=== PATIENT | female | born 1935 | race Hispanic/Latino ===

== ENCOUNTER 2018-03-26 16:01 | Observation (INO) | payer OTHER ==
[2018-03-26 17:36] LABS: Absolute Lymphocytes (CBC) 0.7 K/uL (0.7-4.9); Absolute Monocytes 0.5 K/uL (0.1-1.3); Absolute Neutrophil 6.9 K/uL (1.8-8.0); Basophils % 0.5 % (0-1.3); Eosinophils % 0.3 % (0-4.4); Hematocrit 39.2 % (36.0-45.0); Lymphocytes % 8.1 % (15.3-44.8); MCH 32.5 pg (27.0-35.0); MCV 102.4 fL (80-100); Monocytes % 5.6 % (3.3-12.3); RBC Red Blood Cell Count 3.83 M/uL (3.86-4.86)
[2018-03-26 17:50] LABS: Bilirubin Direct 0.2 mg/dL (0-0.2); Bilirubin Total 0.5 mg/dL (0.2-1.0); CKMB Creatine Kinase MB 3.2 ng/mL (0.3-3.6); Magnesium 1.9 mg/dL (1.8-2.4); Potassium 3.2 mmol/L (3.5-5.1); Protein, Total 5.8 g/dL (6.4-8.2)
--- NOTE | 2018-03-26 17:59 | RAD REPORT ---
EXAM DESCRIPTION: Sohail Single View03/26/2018 5:31 pm CLINICAL HISTORY: Shortness of breath COMPARISON: 2016 FINDINGS: A right cardiophrenic opacity represents epicardial fat The lungs appear clear of acute infiltrate. The heart is moderately enlarged. The aorta is tortuous/e ctatic. Central venous catheter remains in place IMPRESSION: No acute abnormalities displayed
[2018-03-26 18:01] LABS: Protime INR 0.94
[2018-03-26 19:06] LABS: Blood Morphology Comment NOTED (NOT SEEN); Burr Cells 1+; Platelet Estimate DECR
--- NOTE | 2018-03-26 19:13 | EDPHYS ---
Physician Documentation [facility] Name: Stefany Sauer Age: 82 yrs Sex: Female : 1935 Arrival Date: 03/26/2018 Time: 16:17 Bed 23 Private MD: Dilan Winston ED Physician Dale Albrecht HPI: 03/26 16:18 This 82 yrs old Female presents to ER via Unassigned with complaints of Chest kav Pain. 16:53 Onset: The symptoms/episode began/occurred acutely. Associated signs and symptoms: kav Pertinent positives: chest pain, headache, Pertinent negatives: fever. The patient has experienced a previous episode, approximately 2 years ago. The patient has not recently seen a physician. patient pcp is dr. winston, injection mold technician is dr. sanchez. patient home medication regimen includes prednisone 10 mg po q daily. 16:57 The patient or guardian reports chest pain that is located primarily in the anterior kav aspect of left upper chest and left breast. Onset: acutely. The pain does not radiate. The chest pain is described as stabbing. Duration: The patient or guardian reports a single episode, that is now resolved. Modifying factors: The symptoms are alleviated by nothing. the symptoms are aggravated by "...dialysis this morning". patient reports that chest pain started after dialysis. Severity of pain: At its worst the pain was very mild this morning, in the emergency department the pain has resolved. Historical: - Allergies: 16:26 Betapace; tl3 16:26 Ferrous Gluconate; tl3 16:26 Sulfa (Sulfonamide Antibiotics); tl3 16:26 Trazodone; tl3 16:26 Zutripro; tl3 - Home Meds: 16:26 levothyroxine 125 mcg tab 1 tab once daily [Active]; amlodipine 5 mg tab 1 tab once tl3 daily [Active]; omeprazole 40 mg Oral cpDR 1 cap once daily [Active]; calcium acetate 667 mg Oral cap 1 caps with meals [Active]; Poppy-Taisha 0.8 mg oral tab [Active]; Dialyvite 800 with Zinc 15 0.8-15 mg Oral tab daily [Active]; Vitamin D3 5,000 unit oral tab daily [Active]; allopurinol 100 mg Oral tab 1 tab once daily [Active]; prednisone 10 mg Oral tab once daily [Active]; pravastatin 40 mg Oral tab 1 tab once daily [Active]; tadalafil oral oral 1 tab once daily [Active]; - PMHx: 16:26 CHF; Cirrhosis; CVA; Dialysis; GI Bleed; Gout; Hyperlipidemia; Hypertension; tl3 Hypothyroidism; seasonal allergies; - Immunization history:: Adult Immunizations up to date. - Social history:: Smoking status: unknown. - Ebola Screening: : No symptoms or risks identified at this time. - Family history:: not pertinent. - Hospitalizations: : No recent hospitalization is reported. - History obtained from: daughter. ROS: 16:57 Constitutional: Negative for fever, chills, and weight loss, Eyes: Negative for injury, kav pain, redness, and discharge, ENT: Negative for injury, pain, and discharge, Neck: Negative for injury, pain, and swelling, Respiratory: Negative for shortness of breath, cough, wheezing, and pleuritic chest pain, Abdomen/GI: Negative for abdominal pain, nausea, vomiting, diarrhea, and constipation, Back: Negative for injury and pain, : Negative for injury, bleeding, discharge, and swelling, MS/Extremity: Negative for injury and deformity, Skin: Negative for injury, rash, and discoloration, Neuro: Negative for headache, weakness, numbness, tingling, and seizure, Psych: Negative for depression, anxiety, suicide ideation, homicidal ideation, and hallucinations, Allergy/Immunology: Negative for hives, rash, and allergies, Endocrine: Negative for neck swelling, polydipsia, polyuria, polyphagia, and marked weight changes, Hematologic/Lymphatic: Negative for swollen nodes, abnormal bleeding, and unusual bruising. 16:57 Cardiovascular: Positive for chest pain, of the left breast and anterior aspect of left upper chest. Exam: 16:57 Constitutional: This is a well developed, well nourished patient who is awake, alert, kav and in no acute distress. Head/Face: Normocephalic, atraumatic. Eyes: Pupils equal round and reactive to light, extra-ocular motions intact. Lids and lashes normal. Conjunctiva and sclera are non-icteric and not injected. Cornea within normal limits. Periorbital areas with no swelling, redness, or edema. ENT: Nares patent. No nasal discharge, no septal abnormalities noted. Tympanic membranes are normal and external auditory canals are clear. Oropharynx with no redness, swelling, or masses, exudates, or evidence of obstruction, uvula midline. Mucous membranes moist. Neck: Trachea midline, no thyromegaly or masses palpated, and no cervical lymphadenopathy. Supple, full range of motion without nuchal rigidity, or vertebral point tenderness. No Meningismus. Chest/axilla: Normal chest wall appearance and motion. Nontender with no deformity. No lesions are appreciated. Respiratory: Lungs have equal breath sounds bilaterally, clear to auscultation and percussion. No rales, rhonchi or wheezes noted. No increased work of breathing, no retractions or nasal flaring. Abdomen/GI: Soft, non-tender, with normal bowel sounds. No distension or tympany. No guarding or rebound. No evidence of tenderness throughout. Back: No spinal tenderness. No costovertebral tenderness. Full range of motion. Skin: Warm, dry with normal turgor. Normal color with no rashes, no lesions, and no evidence of cellulitis. MS/ Extremity: Pulses equal, no cyanosis. Neurovascular intact. Full, normal range of motion. Neuro: Awake and alert, GCS 15, oriented to person, place, time, and situation. Cranial nerves II-XII grossly intact. Motor strength 5/5 in all extremities. Sensory grossly intact. Cerebellar exam normal. Normal gait. Psych: Awake, alert, with orientation to person, place and time. Behavior, mood, and affect are within normal limits. 16:57 Cardiovascular: Rate: tachycardic, actual rate is 128 bpm, Rhythm: sinus tachycardia, Pulses: Pulses are 2+ in right radial artery and left radial artery. Heart sounds: murmur, heard in the mitral area, Edema: pedal edema, that is moderate, ble edema 3+ pitting edema. 16:57 ECG was reviewed by the Attending Physician. Vital Signs: 16:26 BP 102 / 63; Pulse 69; Resp 18; Temp 98.6(O); Pulse Ox 98% on 2 lpm NC; tl3 17:37 BP 89 / 63; Pulse 102; Resp 18; Pulse Ox 99% on 2 lpm NC; tl3 18:02 BP 89 / 50; Pulse 76; Resp 25; Pulse Ox 98% on 2 lpm NC; rv 18:59 BP 102 / 53; Pulse 106; Resp 18; Pulse Ox 100% ; tl3 18:59 BP 109 / 67; Pulse 90; Resp 18; Pulse Ox 100% ; tl3 20:08 BP 128 / 70; Pulse 80; Resp 18; Pulse Ox 100% on 2 lpm NC; tl3 21:06 BP 122 / 71; Pulse 79; Pulse Ox 98% on 2 lpm NC; rv 21:23 BP 134 / 71; Pulse 82; Resp 18; Pulse Ox 99% on 2 lpm NC; tl3 MDM: 17:52 Data reviewed: vital signs, nurses notes, lab test result(s), EKG, radiologic studies, kav plain films. 17:59 Transition of care: After a detail discussion of the patient's case, care is kav transferred to Rigo Whitaker NP. 19:10 Physician consultation: Dilan Winston MD was called at 19:00, was contacted at 19:00, pm1 regarding admission, patient's condition, would like consultation with Dr. Pacheco, in the emergency department to see patient at 19:10. 19:12 Patient medically screened. pm1 19:16 Physician consultation: Dilan Winston MD would like further tests performed, bilateral pm1 hip and L-spine x-ray. 03/26 16:18 Order name: Basic Metabolic Panel; Complete Time: 17:51 03/26 16:18 Order name: CBC with Diff; Complete Time: 19:09 03/26 16:18 Order name: Ckmb; Complete Time: 17:51 03/26 16:18 Order name: CPK; Complete Time: 17:51 03/26 16:18 Order name: LFT's; Complete Time: 17:51 03/26 16:18 Order name: Magnesium; Complete Time: 17:51 03/26 16:18 Order name: NT PRO-BNP; Complete Time: 17:51 03/26 16:18 Order name: PT-INR; Complete Time: 18:16 03/26 16:18 Order name: Ptt, Activated; Complete Time: 18:16 03/26 16:18 Order name: Troponin (emerg Dept Use Only); Complete Time: 17:53 03/26 16:18 Order name: XRAY Chest (1 view); Complete Time: 18:16 kav 07/11 17:35 Order name: Troponin (emerg Dept Use Only): 2nd troponin - draw at 1820; Complete Time: kav 19:09 03/26 17:39 Order name: Manual Differential; Complete Time: 19:09 EDMS 03/26 19:16 Order name: Lumbar Spine (3 Views) XRAY pm1 03/26 16:18 Order name: EKG; Complete Time: 16:19 kav 03/26 16:18 Order name: Cardiac monitoring; Complete Time: 17:36 kav 03/26 16:18 Order name: EKG - Nurse/Tech; Complete Time: 17:36 kav 03/26 16:18 Order name: IV Saline Lock; Complete Time: 17:36 kav 03/26 16:18 Order name: Labs collected and sent; Complete Time: 17:36 kav 03/26 16:18 Order name: O2 Per Protocol; Complete Time: 17:37 kav 03/26 16:18 Order name: O2 Sat Monitoring; Complete Time: 17:37 kav 03/26 17:53 Order name: VS Recheck; Complete Time: 18:04 ka 03/26 19:16 Order name: Hip Left 2 View XRAY pm1 03/26 19:16 Order name: Hip Right 2 View XRAY pm1 03/26 19:16 Order name: Pelvis XRAY pm1 03/26 20:02 Order name: RAD; Complete Time: 20:29 EDMS 03/26 20:02 Order name: RAD; Complete Time: 20:29 EDMS 03/26 20:03 Order name: RAD; Complete Time: 20:29 EDMS 03/26 20:08 Order name: RAD; Complete Time: 20:29 EDMS Administered Medications: No medications were administered Disposition: 03/26/18 19:12 Hospitalization ordered by Dilan Winston for Observation. Preliminary diagnosis is Chest pain, unspecified. - Bed requested for Telemetry/MedSurg (observation). - Status is Observation. tl3 - Condition is Stable. - Problem is new. - Symptoms are resolved. UTI on Admission? No Addendum: 03/28/2018 20:53 Co-signature as Attending Physician, Dale Albrecht MD. r n Signatures: Dispatcher [facility] Shelby Sosa RN Emi Sousa FNP SOCIAL WORK PROFESSOR kav Dale Albrecht MD MD rn Marinas, Patrick, FRANKFURTER INSPECTOR FRANKFURTER INSPECTOR pm1 Karol Chopra RN RN tl3 Corrections: (The following items were deleted from the chart) 03/26 16:59 16:53 Modifying factors: The patient symptoms are alleviated by dialysis this morning., kav the patient symptoms are aggravated by nothing, kav 20:32 19:12 Hospitalization Ordered by Dilan Winston MD for Observation. Preliminary diagnosis kl is Chest pain, unspecified. Bed requested for Telemetry/MedSurg (observation). Status is Observation. Condition is Stable. Problem is new. Symptoms are resolved. UTI on Admission? No. pm1 21:31 20:32 03/26/2018 19:12 Hospitalization Ordered by Dilan Winston MD for Observation. tl3 Preliminary diagnosis is Chest pain, unspecified. Bed requested for Telemetry/MedSurg (observation). Status is Observation. Condition is Stable. Problem is new. Symptoms are resolved. UTI on Admission? No. kl
--- NOTE | 2018-03-26 19:13 | ER ---
Nurse's Notes [facility] Name: Stefany Sauer Age: 82 yrs Sex: Female : 1935 Arrival Date: 03/26/2018 Time: 16:17 Bed 23 Private MD: Dilan Kelly Diagnosis: Chest pain, unspecified Presentation: 03/26 16:18 Presenting complaint: EMS states: Pt returned from dialysis this afternoon and was tl3 feeling weaker than normal, also has lower back pain and chest discomfort. rate was as high as 180's and as low as 50's per EMS. Transition of care: patient was not received from another setting of care. Onset of symptoms was March 26, 2018. Risk Assessment: Do you want to hurt yourself or someone else? Patient reports no desire to harm self or others. Initial Sepsis Screen: Does the patient meet any 2 criteria? No. Patient's initial sepsis screen is negative. Does the patient have a suspected source of infection? No. Patient's initial sepsis screen is negative. Care prior to arrival: None. 16:18 Method Of Arrival: EMS: [facility] tl3 16:18 Acuity: SHEA 3 tl3 Triage Assessment: 21:22 General: Appears uncomfortable, slender, well groomed, well developed, well nourished, tl3 Behavior is calm, cooperative, appropriate for age. Historical: - Allergies: 16:26 Betapace; tl3 16:26 Ferrous Gluconate; tl3 16:26 Sulfa (Sulfonamide Antibiotics); tl3 16:26 Trazodone; tl3 16:26 Zutripro; tl3 - Home Meds: 16:26 levothyroxine 125 mcg tab 1 tab once daily [Active]; amlodipine 5 mg tab 1 tab once tl3 daily [Active]; omeprazole 40 mg Oral cpDR 1 cap once daily [Active]; calcium acetate 667 mg Oral cap 1 caps with meals [Active]; Poppy-Taisha 0.8 mg oral tab [Active]; Dialyvite 800 with Zinc 15 0.8-15 mg Oral tab daily [Active]; Vitamin D3 5,000 unit oral tab daily [Active]; allopurinol 100 mg Oral tab 1 tab once daily [Active]; prednisone 10 mg Oral tab once daily [Active]; pravastatin 40 mg Oral tab 1 tab once daily [Active]; tadalafil oral oral 1 tab once daily [Active]; - PMHx: 16:26 CHF; Cirrhosis; CVA; Dialysis; GI Bleed; Gout; Hyperlipidemia; Hypertension; tl3 Hypothyroidism; seasonal allergies; - Immunization history:: Adult Immunizations up to date. - Social history:: Smoking status: unknown. - Ebola Screening: : No symptoms or risks identified at this time. - Family history:: not pertinent. - Hospitalizations: : No recent hospitalization is reported. - History obtained from: daughter. Screenin:59 Abuse screen: Denies threats or abuse. Nutritional screening: No deficits noted. tl3 Tuberculosis screening: No symptoms or risk factors identified. Fall Risk Secondary diagnosis (15 points) impaired mobility. Assessment: 16:45 Reassessment: No changes from previously documented assessment. Patient is alert, tl3 oriented x 3, equal unlabored respirations, skin warm/dry/pink. Emi at bedside to access pt. Pain: Denies pain. Cardiovascular: Heart tones S1 S2 present Patient's skin is warm and dry. Dialysis shunt: in the right arm and left arm. Respiratory: Airway is patent Respiratory effort is even, unlabored, Respiratory pattern is regular, symmetrical, Breath sounds are clear bilaterally. GI: No signs and/or symptoms were reported involving the gastrointestinal system. : No signs and/or symptoms were reported regarding the genitourinary system. EENT: No signs and/or symptoms were reported regarding the EENT system. 17:37 Reassessment: Patient appears in no apparent distress at this time. No changes from tl3 previously documented assessment. Patient and/or family updated on plan of care and expected duration. Pain level reassessed. Patient is alert, oriented x 3, equal unlabored respirations, skin warm/dry/pink. daughter at bedside. 18:59 Reassessment: Patient appears in no apparent distress at this time. No changes from tl3 previously documented assessment. Patient and/or family updated on plan of care and expected duration. Pain level reassessed. Patient is alert, oriented x 3, equal unlabored respirations, skin warm/dry/pink. 20:08 Reassessment: Patient appears in no apparent distress at this time. No changes from tl3 previously documented assessment. Patient and/or family updated on plan of care and expected duration. Pain level reassessed. Patient is alert, oriented x 3, equal unlabored respirations, skin warm/dry/pink. pt resting quietly, no pain, no needs at this time. 21:23 Pain: Pain began gradually. tl3 21:23 Reassessment: Patient appears in no apparent distress at this time. No changes from tl3 previously documented assessment. Patient and/or family updated on plan of care and expected duration. Pain level reassessed. Patient is alert, oriented x 3, equal unlabored respirations, skin warm/dry/pink. Vital Signs: 16:26 BP 102 / 63; Pulse 69; Resp 18; Temp 98.6(O); Pulse Ox 98% on 2 lpm NC; tl3 17:37 BP 89 / 63; Pulse 102; Resp 18; Pulse Ox 99% on 2 lpm NC; tl3 18:02 BP 89 / 50; Pulse 76; Resp 25; Pulse Ox 98% on 2 lpm NC; rv 18:59 BP 102 / 53; Pulse 106; Resp 18; Pulse Ox 100% ; tl3 18:59 BP 109 / 67; Pulse 90; Resp 18; Pulse Ox 100% ; tl3 20:08 BP 128 / 70; Pulse 80; Resp 18; Pulse Ox 100% on 2 lpm NC; tl3 21:06 BP 122 / 71; Pulse 79; Pulse Ox 98% on 2 lpm NC; rv 21:23 BP 134 / 71; Pulse 82; Resp 18; Pulse Ox 99% on 2 lpm NC; tl3 ED Course: 16:17 Patient arrived in ED. tl3 16:18 [facility] Campoverde FNP [facility]. kav 16:18 Dilan Kelly MD is Private Physician. tl3 16:18 Karol Chopra, JONATHAN is Primary Nurse. tl3 16:20 Triage completed. tl3 16:20 EKG done, by ED staff, reviewed by Emi RICHARDSON. jp3 16:26 Arm band placed on right wrist. EKG completed in triage. Results shown to . tl3 17:15 Inserted saline lock: 24 gauge in left forearm, using aseptic technique. Blood jp3 collected. 17:15 Initial lab(s) drawn, by me, sent to lab. jp3 17:29 X-ray completed. Portable x-ray completed in exam room. Patient tolerated procedure bb2 well. 17:29 XRAY Chest (1 view) In Process Unspecified. EDMS 18:08 PHCP role handed off by Emi Campoverde FNP pm1 18:08 Rigo Whitaker NP is PHCP. pm1 18:08 Dale Albrecht MD is Attending Physician. pm1 18:59 No provider procedures requiring assistance completed. Oxygen administration via nasal tl3 cannula \T\ 2L/min. 18:59 Patient has correct armband on for positive identification. Placed in gown. Bed in low tl3 position. Call light in reach. Side rails up X2. clinical nurse specialist on. Pulse ox on. NIBP on. 19:12 Dilan Kelly MD is Hospitalizing Provider. pm1 19:41 Patient moved to radiology via wheelchair. kw 21:23 Patient admitted, IV remains in place. tl3 Administered Medications: No medications were administered Outcome: 19:12 Decision to Hospitalize by Provider. pm1 21:23 Admitted to Tele accompanied by tech, via wheelchair, with chart, Report called to tl3 Claire Poole RN 21:23 Condition: stable 21:23 Instructed on the need for admit, Demonstrated understanding of instructions. 21:31 Patient left the ED. tl3 Signatures: Dispatcher [employer] EDOK Emi Campoverde FNP PUBLICATION DISTRIBUTOR Lilli Mann Rigo Whitaker NP CONTRACTS OFFICER pm1 Teresa Wilkerson bb2 Karol Chopra RN RN tl3 Jose Bhatt RN RN Rebel Franks jp3
--- NOTE | 2018-03-26 20:01 | RAD REPORT ---
EXAM DESCRIPTION: RAD - Pelvis - 03/26/2018 7:51 pm CLINICAL HISTORY: Pelvic pain FINDINGS: No acute fracture or dislocation is seen. The bones are osteoporotic. Callus formation is present about an old left pubic bone fracture
--- NOTE | 2018-03-26 20:02 | RAD REPORT ---
EXAM DESCRIPTION: RAD - Hip Right 2 View - 03/26/2018 7:51 pm CLINICAL HISTORY: Right hip pain FINDINGS: No acute fracture or dislocation is seen. The bones are osteoporotic. Callus formation is present about an old left pubic bone fracture
--- NOTE | 2018-03-26 20:07 | RAD REPORT ---
EXAM DESCRIPTION: RAD - Lumbar Spine 3 Views - 03/26/2018 7:51 pm CLINICAL HISTORY: Back pain FINDINGS: The bones are osteoporotic. No fracture or dislocation is seen. Mild spondylosis involves the lumbar spine.
[2018-03-26 22:22] VITALS: BMI 18.7
[2018-03-26] MEDS: ACETAMINOPHEN 500 MG TAB PO PRN (23:11)
--- NOTE | 2018-03-26 23:37 | EKG ---
Test Date: 2018-03-26 Test Time: 16:20:24 Engineering Programmer: TAVIA MEASUREMENT RESULTS: Intervals: Rate: 128 CA: 184 QRSD: 86 QT: 296 QTc: 432 Keene: P: 41 CA: 184 QRS: -20 T: 36 INTERPRETIVE STATEMENTS: Sinus tachycardia with fusion complexes ST & T wave abnormality, consider lateral ischemia Abnormal ECG Compared to ECG 07/26/2016 06:53:05 Fusion complex(es) now present ST (T wave) deviation now present Possible ischemia now present Sinus rhythm no longer present Electronically Signed On 03-26-18 23:37:10 CDT by Tay Arauz
[2018-03-27] MEDS: ACETAMINOPHEN 500 MG TAB PO PRN ×2 (04:12→09:49)
[2018-03-27 06:29] LABS: Absolute Monocytes 0.4 K/uL (0.1-1.3); Basophils % 1.5 % (0-1.3); Eosinophils % 1.2 % (0-4.4); Hematocrit 36.9 % (36.0-45.0); Lymphocytes % 17.9 % (15.3-44.8); MCH 33.1 pg (27.0-35.0); MCV 103.2 fL (80-100); MPV 9.5 fL (7.6-11.3); Monocytes % 7.6 % (3.3-12.3); RBC Red Blood Cell Count 3.57 M/uL (3.86-4.86)
[2018-03-27 06:43] LABS: Potassium 3.4 mmol/L (3.5-5.1)
--- NOTE | 2018-03-27 06:46 | HP ---
Date of Admission: 03/26/2018 Chief Complaint: Chest pain. History Of Present Illness: This is an 82-year-old pleasant female patient, who was admitted to the hospital after she came into emergency room with complaints of chest pain. The patient had end-stage renal disease, on hemodialysis. She went for dialysis today. After dialysis, she went home and whelke e she was at home she started to have chest pain in the center of the chest, unable to describe exact nature of chest pain, but she describes as if it was sharp pain. No radiation of pain. No associate d symptoms. No aggravating or relieving factor. She contacted her daughter who went there to check on her and then the patient requested to be brought to emergency room when 911 was called. After the patient was evaluated in the ER, she was admitted to the hospital. I saw her in the emergency room. Her chest pain continued until she came to emergency room. Medications: List reviewed. Review of Systems: Cardiovascular: As mentioned above. All other systems reviewed and negative. Allergies: SOTALOL, SULFA, TRAZODONE, IRON AND ZUTRIPRO. Family History: Mother had Alzheimer's, breast cancer. Brother with hypertension. Father with myoc ardial infarction. Social History: Negative for smoking, alcohol use. Past Medical History: End-stage renal disease, on hemodialysis; insomnia; thrombocytopenia; osteoart hritis at multiple sites; anemia due to chronic kidney disease; anemia due to GI bleeding; pulmonary hypertension; osteoporosis; hyperlipidemia; gastroesophageal reflux disease; hypertension; gout; hypo thyroidism. Past Surgical History: Appendectomy, umbilical hernia repair, cataract surgery, dialysis, graft plac ement, surgery for bowel obstruction. Physical Examination: Vital Signs: Her temperature was 98.6 when she first came in, pulse 82, respiratory rate 18, blood p ressure 134/71. General: Awake, alert, oriented, not in distress. HEENT: Head atraumatic, normocephalic. Conjunctivae nonerythematous. Sclerae white. Mouth, no thr ush or edema noted. Ears/Nose, no mass, lesion, discharge noted. Neck: Supple. No JVD, lymph nodes, bruit, thyromegaly noted. Lungs: Bilateral good equal air entry. Clear to auscultation. No rhonchi. No rales. Heart: Presence of systolic murmur. Abdomen: Soft, bowel sounds normal. No guarding, rigidity, tenderness, mass, hepatosplenomegaly, dis tention, or bruit noted. Extremities: No leg edema. No calf tenderness. Skin: No rash, ulcer, cellulitis. Lymphatics: No lymph node enlargement in neck, supraclavicular, infraclavicular region. Neuro: No focal neurological deficit. Chest: Unremarkable. External Genitalia: Deferred. Rectal: Deferred. Laboratory Data: Chest x-ray, no acute cardiopulmonary changes. Hip, pelvis, and lumbar spine x-ray shows no evidence of fracture, bones are osteoporotic, old left pubic bone fracture. Lumbar spine x- ray shows mild spondylotic changes, osteoporosis, no fracture. Pelvis x-ray shows no fracture. White count 8.1, hemoglobin 12.4, platelets 95. PT/PTT normal. Sodium 142, potassium 3.2, chloride 104, bicarb 30, BUN 16, creatinine 2.70, glucose 96. Liver function tests unremarkable. Troponin 0. 06 on the first set, second set 0.08. Impression: 1.Chest pain. 2.End-stage renal disease, on hemodialysis. 3.Hypokalemia. 4.Thrombocytopenia. 5.Osteoarthritis, multiple sites. 6.Anemia, due to chronic kidney disease. 7.Pulmonary hypertension. 8.Hypothyroidism. 9.Osteoporosis. 10.Hyperlipidemia. 11.Gastroesophageal reflux disease. 12.Hypertension. Plan: Admit the patient to hospital for further evaluation and management of this problem. The bill ent is appropriate for observation. Home medications will be continued per order. We will consult C ardiology. I will see her tomorrow for followup. We will get an echocardiogram done tomorrow. Furt her plan of treatment will depend on planing machine operator's recommendation. DIANA/MODL Voice ID: [id number]
[2018-03-27] MEDS: ASPIRIN EC 81 MG TAB PO SCH (08:30)
[2018-03-27] MEDS ORDERED: FOLIC ACID PO SCH (09:30)
[2018-03-27] MEDS ORDERED: VITAMIN B COMP W C PO SCH (09:30)
[2018-03-27] MEDS ORDERED: ALLOPURINOL 100 MG PO SCH (09:30)
[2018-03-27] MEDS ORDERED: HOME MED 1 EA UNK (Cholecalciferol (Vitamin D3) [Vitamin D3] 5,000 UNIT) PO SCH (09:30)
[2018-03-27] MEDS ORDERED: CALCIUM ACETATE PO SCH (12:00)
[2018-03-27] MEDS ORDERED: IBUPROFEN 400 MG TAB PO ONE (14:00)
--- NOTE | 2018-03-27 15:19 | ECHO ---
HEIGHT: 4 ft 10 in WEIGHT: 89 lb 12.8 oz DATE OF STUDY: 03/27/[address]: Myke Forde MD 2-DIMENSIONAL: YES M.MODE: YES DOPPLER: YES COLOR FLOW: YES TDS: PORTABLE: DEFINITY: BUBBLE STUDY: DIAGNOSIS: CHEST PAIN CARDIAC HISTORY: CATHERIZATION: NO SURGERY: NO PROSTHETIC VALVE: NO PACEMAKER: NO MEASUREMENTS (cm) DIASTOLIC (NORMALS) SYSTOLIC (NORMALS) IVSd 1.2 (0.6-1.2) LA Diam 3.7 (1.9-4.0) LVEF 65% LVIDd 4.5 (3.5-5.7) LVIDs 2.9 (2.0-3.5) %FS 35% LVPWd 1.3 (0.6-1.2) Ao Diam 2.9 (2.0-3.7) 2 DIMENSIONAL ASSESSMENT: RIGHT ATRIUM: NORMAL LEFT ATRIUM: NORMAL RIGHT VENTRICLE: NORMAL LEFT VENTRICLE: NORMAL TRICUSPID VALVE: NORMAL MITRAL VALVE: MITRAL ANNULAR CALCIFICATION PULMONIC VALVE: NORMAL AORTIC VALVE: NORMAL PERICARDIAL EFFUSION: NONE AORTIC ROOT: NORMAL LEFT VENTRICULAR WALL MOTION: NORMAL DOPPLER/COLOR FLOW: MILD TRICUSPID REGURGITATION. RIGHT VENTRICULAR SYSTOLIC PRESSURE 39 mmHg. COMMENTS: MILD PULMONARY HYPERTENSION. MILD TRICUSPID REGURGITATION. MITRAL ANNULAR CALCIFICATION. NORMAL LEFT VENTRICULAR SIZE AND FUNCTION. TECHNOLOGIST: JENNA MCDONOUGH
[2018-03-27 18:09] LABS: Absolute Lymphocytes (CBC) 0.8 K/uL (0.7-4.9); Absolute Monocytes 0.4 K/uL (0.1-1.3); Absolute Neutrophil 6.9 K/uL (1.8-8.0); Basophils % 1.3 % (0-1.3); Hematocrit 39.4 % (36.0-45.0); Lymphocytes % 9.2 % (15.3-44.8); MCH 32.6 pg (27.0-35.0); MCV 102.8 fL (80-100); MPV 9.2 fL (7.6-11.3); Monocytes % 5.4 % (3.3-12.3); RBC Red Blood Cell Count 3.83 M/uL (3.86-4.86)
[2018-03-27] MEDS ORDERED: HOME MED 1 EA UNK (Pravastatin Sodium [Pravachol] 40 MG) PO SCH (21:00)
[2018-03-27] MEDS ORDERED: HOME MED 1 EA UNK (Tadalafil [Cialis] 20 MG) PO SCH (21:00)
[2018-03-27] MEDS ORDERED: HOME MED 1 EA UNK (Prednisone [Prednisone*] 10 MG) PO SCH (21:00)
--- NOTE | 2018-03-28 01:44 | PN ---
Date of Progress Note: 03/27/2018 Subjective: The patient was seen this morning for followup. Her family member was at bedside with h er. No new complaints or problems reported. No chest pain and no shortness of breath when I saw her since I met her in the emergency room yesterday. Objective: Vital Signs: Reviewed. HEENT Examination: Unremarkable. Lungs: Clear to auscultation. Heart: Heart sounds normal. Abdomen: Soft. Bowel sounds normal. No guarding, rigidity, tenderness, or distention. Extremities: No leg edema. Laboratory Data: White count 5.6, hemoglobin 11.8, platelets 88. Sodium 141, potassium 3.4, chlorid e 105, bicarb 27, BUN 28, creatinine 3.90, glucose 74. Impression: 1.Chest pain. 2.End-stage renal disease, on hemodialysis. 3.Lower gastrointestinal bleeding. 4.Anemia, due to chronic kidney disease. Plan: When I saw the patient this morning, nurse had informed me that senior sous chef had requested str ess test for the patient and family was not sure whether they want her to have stress test or not so when I saw the patient family member were asking me about the stress test, if I think it is necessary , and I explained them that for further evaluation of her chest pain it is one of important tests sabina t we need to consider to rule out any evidence of any significant coronary artery disease problem, an d patient is considered at high risk for such problem considering her renal disease that she has and her age. Family member informed me that she has been talking to multiple other different family memb ers and they all will get together and make decision whether they want her to have stress test or not , and eventually I was notified by nurse on the floor that family has decided not to have stress test , and my plan was to then discharge her to go home with followup with her senior sous chef, Dr. Arauz, o n outpatient basis for further evaluation and management of this chest pain problem. As nurses were later on planning to discharge her, the patient actually had a bowel movement and there was some bloo d in it. So, with that, the nurse contacted me. We ordered stat CBC. Hemoglobin was stable, her vi evelina signs were stable, but decision was made to cancel discharge order today and we will monitor her overnight, consult her executive secretary social welfare, Dr. Benedict, and also consult her metal technician as the patie nt will be due for dialysis tomorrow. I will see her again tomorrow for followup. DIANA/MODL Voice ID: [id number] Report ID: [id number]
--- NOTE | 2018-03-28 05:44 | CON ---
Date of Consultation: 03/27/[address] Kelly's service on 03/26/2018. The patient was seen on 03/27/2018 by me. Reason For Consultation: Chest pain. History Of Present Illness: Mrs. Sauer is an 82-year-old [place] woman. She has a history of atrial fibrillation, congestive heart failure, cirrhosis, hypertension, dyslipidemia, history of cer ebrovascular accident. The patient is on hemodialysis for end-stage renal disease, has had a history of GI bleed and gout in the past. Came in with substernal chest tightness that occurred while she w as on dialysis. Had some diaphoresis and nausea. No shortness of breath. Denied PND, orthopnea, pe alber edema, palpitations, or syncope. Her troponin was 0.08. Her BNP was 7999. She had a potassium of 3.2, creatinine is 2.7. Chest x-ray is negative. Has had a previous cardiac workup in 2016 with a normal echo showing mild pulmonary hypertension and had a negative Lexiscan in 2016 as well. The p atient was very hesitant to have a stress test today. An echocardiogram is pending. She is asymptom atic when I saw her. Allergies: SHE IS ALLERGIC TO BETAPACE. Review of Systems: Negative. Social History: Negative. Family History: Positive for hypertension and diabetes. Physical Examination: General: She was pleasant, in no acute distress. Vital Signs: Stable, afebrile. HEENT: Negative. Neck: Supple. No bruit, lymphadenopathy, JVD, or thyromegaly. Chest: Clear to auscultation and percussion. Cardiac Exam: Revealed a regular rhythm and rate with an S4, gallops. No murmurs or rubs. Abdomen: Benign. Extremities: Revealed trace edema. Diagnostic Data: As stated earlier. Impression And Plan: 1.Chest pain and certainly could be related to angina. She has lot of risk factors for heart diseas e including hypertension, dyslipidemia, her age, and her renal failure and end-stage renal disease. We will see what the echocardiogram shows. She is very hesitant to have a stress test, although she will consider having as an outpatient. I explained in detail what it entails. Her elevation of trop onin and BNP are not clinically significant in the view of end-stage renal disease. She is asymptoma tic and uncomfortable with going home. We will discuss the case further with Dr. Kelly. 2.Hypertension, well controlled. 3.Dyslipidemia, well controlled. 4.End-stage renal disease, on hemodialysis. 5.History of cerebrovascular accident, stable. 6.History of cirrhosis. 7.History of gastrointestinal bleed. 8.History of gout. 9.History of congestive heart failure in the past. I am assuming that was chronic diastolic type. She is not in congestive heart failure now. As we discussed with the family and the patient and Dr. Kelly, instructions were given for her to call if her chest pain reoccurs. Time Spent: Forty five minutes were spent in the care of Mrs. Sauer. I will have my office call and set up an outpatient Lexiscan. AYAN/KELI Voice ID: [id number] Report ID: [id number]
[2018-03-28 05:54] LABS: Absolute Lymphocytes (CBC) 1.1 K/uL (0.7-4.9); Absolute Monocytes 0.4 K/uL (0.1-1.3); Eosinophils % 0.9 % (0-4.4); Hematocrit 34.2 % (36.0-45.0); Lymphocytes % 16.2 % (15.3-44.8); MCH 33.4 pg (27.0-35.0); MCV 102.8 fL (80-100); MPV 9.8 fL (7.6-11.3); Monocytes % 6.5 % (3.3-12.3); RBC Red Blood Cell Count 3.32 M/uL (3.86-4.86)
[2018-03-28] MEDS ORDERED: LEVOTHYROXINE 125 MCG PO SCH (06:00)
[2018-03-28 08:39] VITALS: O2SAT 96
[2018-03-28] MEDS ORDERED: AMLODIPINE 5 MG TAB PO SCH (09:00)
[2018-03-28] MEDS ORDERED: HOME MED 1 EA UNK (Omeprazole [Prilosec] 40 MG) PO SCH (09:00)
[2018-03-28] MEDS: ASPIRIN EC 81 MG TAB PO SCH (10:02)
[2018-03-28] MEDS ORDERED: MANNITOL 25% 12.5 GM/50 ML VIAL IV PRN (11:02)
[2018-03-28] MEDS ORDERED: NA CHLORIDE 0.9% 1,000 ML IV PRN (11:02)
[2018-03-28] MEDS ORDERED: EPOETIN ALFA 10,000 UNIT/ML VIAL IV SCH (11:15)
[2018-03-28] MEDS: ACETAMINOPHEN 500 MG TAB PO PRN (11:26)
[2018-03-28] MEDS ORDERED: ALBUMIN HUMAN 25% 50 ML IV SCH (12:00)
--- NOTE | 2018-03-28 12:10 | DS ---
Date of Discharge: 03/28/2018 Physical Examination: HEENT: Unremarkable. Lungs: Clear to auscultation. Heart: Sounds normal. Abdomen: Soft, bowel sounds normal. No guarding, rigidity, tenderness, or distention. Extremities: No leg edema. Hospital Course: An 82-year-old female patient, admitted to the hospital with chest pain complaint. Please see dictated H and P for more information. After the patient was evaluated in the ER, she wa s admitted to the hospital. Cardiology consultation was obtained from Dr. Forde. Dr. Forde orde red a stress test, which was scheduled to be done yesterday and the patient's family decided not to a gree with this stress test recommendations, so stress test was ordered, but it was canceled as family did not agree. Echocardiogram was done, which showed normal ejection fraction. No wall motion abno rmality. Yesterday, we were planning to discharge her and just prior to discharge, the patient amy peters had small amount of bright red blood per rectum when she was having bowel movement. This is noth ing new. She has a history of such problem in the past, requiring multiple blood transfusions, but s he has not had such problem lately, but yesterday when she had this problem, decision was made to can mary lou her discharge and keep her in hospital overnight for observation. Yesterday evening, we repeated another CBC when she had this bleeding episode and this morning. Her hemoglobin has remained stable . This morning when I saw her, her family reported that she did have bowel movement this morning and there was no bleeding noted. The patient denies any GI complaints. I have informed the patient and her family this morning that the patient should follow up with her pilot supervisor, Dr. Arauz on outpa tient basis as suggested and discuss with Dr. Arauz regarding stress test. Her hemodialysis is due to be done today and she will get dialysis at hospital prior to discharge because she will not be abl e to get dialysis at the clinic as I was told that her chair time was given to somebody else because she is in the hospital. Discharge Diagnoses: 1.Chest pain. 2.End-stage renal disease, on hemodialysis. 3.Lower gastrointestinal bleeding. 4.Thrombocytopenia. 5.Hypokalemia. 6.Osteoarthritis, multiple sites. 7.Anemia due to chronic kidney disease. 8.Pulmonary hypertension. 9.Hypothyroidism. 10.Osteoporosis. 11.Hyperlipidemia. 12.Gastroesophageal reflux disease. 13.Hypertension. Discharge Medications And Instructions: 1.Continue all prior home medications. 2.Follow up at my office per scheduled appointment. 3.Follow with Dr. Arauz in the next 1-2 weeks to discuss outpatient testing to be done for chest pa in. DIANA/MODL Voice ID: [id number] Report ID: [id number]
[2018-03-28 12:18] VITALS: BP 139/63; TEMP 96.5
--- NOTE | 2018-03-28 20:50 | P.CNS ---
Date of Consult: 03/28/18 Reason for Consult: ESRD Requesting Physician: Dilan Kelly Primary Care Provider: Dr. Kelly Chief Complaint: CP History of Present Illness: 82 yo CKD, HTN presented to the ER with mild, persistent, anterior chest pain with sudden onset. No radiation or diaphoresis. Similar episode in the past. No modifying fx. No fever, chills, nausea and vomiting. Allergies sotalol HCl [From Betapace] Allergy (Severe, Verified 12/09/14 03:53) syncope, resp arrest chlorpheniramine [From Zutripro] Allergy (Intermediate, Verified 12/09/14 03:53) Itching/Hives/Rash/hallucinations docusate sodium [From Ferralet 90 Dual-Iron Delivery] Allergy (Intermediate, Verified 08/26/14 02:07) nausea vomitting rash Fe carbonyl-Fe gluconate [From Ferralet 90 Dual-Iron Delivery] Allergy ( Intermediate, Verified 12/09/14 03:53) nausea vomitting rash/hives hydrocodone bitartrate [From Zutripro] Allergy (Intermediate, Verified 12/09/14 03:53) HALLUCINATE pseudoephedrine HCl [From Zutripro] Allergy (Intermediate, Verified 12/09/14 03: 53) Itching/Hives/Rash/hallucinations cyanocobalamin [From Ferralet 90 Dual-Iron Delivery] Allergy (Verified 03/26/18 22:58) Unknown sodium ferric gluconate complex [From Ferrlecit] Allergy (Verified 04/29/16 02: 03) Hives sucrose [From Ferrlecit] Allergy (Verified 04/29/16 02:03) Hives Sulfa (Sulfonamide Antibiotics) Allergy (Verified 04/29/16 06:27) Anaphylaxis sulfasalazine [Sulfasalazine] Adverse Reaction (Verified 08/26/14 02:07) Anaphylaxis trazodone Adverse Reaction (Verified 08/26/14 02:07) Anaphylaxis Iron (Ferrous Gluconate) Allergy (Severe, Uncoded 04/29/16 02:03) Hives f Allergy (Uncoded 10/06/16 06:32) Unknown fe Allergy (Uncoded 10/22/16 15:34) Unknown Home medications list reviewed: Yes Home Medications: Allopurinol [Zyloprim] 100 mg PO SEECOM 03/26/18 Amlodipine Besylate [Norvasc] 5 mg PO DAILY 03/26/18 Calcium Acetate [Phoslo] 2 cap PO TIDWM 03/26/18 Cholecalciferol (Vitamin D3) [Vitamin D3] 5,000 unit PO SEECOM 03/26/18 Folic Acid/Vitamin B Comp W-C [Poppy-Taisha Tablet] 0.8 mg PO SEECOM 03/26/18 Levothyroxine [Synthroid] 125 mcg PO [id number] 03/26/18 Omeprazole [Prilosec] 40 mg PO DAILY 03/26/18 Pravastatin Sodium [Pravachol] 40 mg PO BEDTIME 03/26/18 Tadalafil [Cialis] 20 mg PO BEDTIME 03/26/18 predniSONE [Deltasone] 10 mg PO BEDTIME 03/26/18 - Past Medical/Surgical History Diabetic: No -: Hypothyroidism -: Pulmonary hypertension -: Cirrhosis -: CHF -: hyperlipdidemia -: CVA -: ESRD -: GI bleed -: angiodyplasia -: Gout -: arthritis -: diverticulosis -: appy -: hernia repair -: angioplasty -: cataracts sx both eyes -: L arm graft -: replace catheter from 09/25/12 -: sx to corect blocked grft right arm -: sx to close off right arm graft - Family History Father Medical History: Stroke Sister Medical History: Cancer Notes: Breast Ca - Social History Smoking Status: Unknown if ever smoked Alcohol use: No CD- Drugs: No Caffeine use: Yes Place of Residence: Home Review of Systems 10-point ROS is otherwise unremarkable General: Weakness Respiratory: SOB with Excertion Cardiovascular: Chest Pain Physical Examination Temp Pulse Resp BP Pulse Ox 96.5 F L 72 20 139/63 100 03/28/18 12:00 03/28/18 12:00 03/28/18 12:00 03/28/18 12:00 03/28/18 12:00 General: In no apparent distress, Oriented x3, Cooperative HEENT: Atraumatic Neck: Supple Respiratory: Clear to auscultation bilaterally, Normal air movement Cardiovascular: No edema, Regular rate/rhythm Gastrointestinal: Soft and benign, Non-distended Musculoskeletal: No clubbing, No contractures Integumentary: No rashes, No cyanosis Neurological: Normal speech Blood work reviewed in the chart. Hgb 11.1 Imagings Data: CXR: Clear Conclusions/Impression: A/ ESRD on HD. HTN with CKD. Diastolic CHF, chronic. Anemia in CKD. DESMOND/ Secondary HyperPTH. Hypocalcemia. Hypokalemia. GI Bleed? P/ Continue current POC and Medications. Arrange for acute HD. Replete potassium. Start Vitamin D and binders. Restart home medications as indicated. No NSAIDs. AM labs. Daily weight. Thank you kindly for the consultation.
== END 2018-03-28 18:14 | disposition home or self-care (01) ==
LOC: ER 16:01 → ERHOLD 19:13 → 4TH 21:26
PROVIDERS: ADMIT Internal Medicine; ATTEND Internal Medicine
DX: R07.9 Chest pain, unspecified (principal); I12.0 Hypertensive chronic kidney disease with stage 5 chronic kidney disease or end stage renal disease; N18.6 End stage renal disease; K92.1 Melena; D69.6 Thrombocytopenia, unspecified; E87.6 Hypokalemia; M19.90 Unspecified osteoarthritis, unspecified site; D63.1 Anemia in chronic kidney disease; I27.20 Pulmonary hypertension, unspecified; E03.9 Hypothyroidism, unspecified; M81.0 Age-related osteoporosis without current pathological fracture; E78.5 Hyperlipidemia, unspecified; K21.9 Gastro-esophageal reflux disease without esophagitis; Z86.73 Personal history of transient ischemic attack (TIA), and cerebral infarction without residual deficits; Z88.2 Allergy status to sulfonamides
CPT/HCPCS: 36415; 71045; 72100; 72170; 80048; 80076; 82550; 82553; 83735; 83880; 84484; 85025; 85610; 85730; 90935; 93005; 93306; 99285; G0257; G0378; Q4081

== ENCOUNTER 2018-05-22 15:35 | Observation (INO) | payer OTHER ==
[2018-05-22 20:13] LABS: Absolute Lymphocytes (CBC) 0.7 K/uL (0.7-4.9); Absolute Monocytes 0.9 K/uL (0.1-1.3); Absolute Neutrophil 8.3 K/uL (1.8-8.0); Hematocrit 22.5 % (36.0-45.0); Lymphocytes % 6.9 % (15.3-44.8); MCV 103.5 fL (80-100); MPV 9.2 fL (7.6-11.3); Monocytes % 8.8 % (3.3-12.3); RBC Red Blood Cell Count 2.18 M/uL (3.86-4.86)
[2018-05-22 20:47] LABS: Blood Morphology Comment NOTED (NOT SEEN); Macrocytosis 1+; Platelet Estimate ADEQ; Polychromasia 1+; Urine White Blood Cell Casts OK
[2018-05-22 20:50] LABS: Anisocytosis SLIGHT
[2018-05-22 20:51] LABS: Ovalocytes SLIGHT
--- NOTE | 2018-05-22 21:04 | EDPHYS ---
Physician Documentation [facility] Name: Stefany Sauer Age: 82 yrs Sex: Female : 1935 Arrival Date: 05/22/2018 Time: 15:38 Bed 2 Private MD: Dilan Kelly ED Physician Med Cao HPI: 05/22 18:53 This 82 yrs old Female presents to ER via Wheelchair with complaints of Blood kdr transfusion. 18:53 Dr. Johnson sent patient for transfusion. Onset: The symptoms/episode began/occurred kdr gradually. Severity of symptoms: At their worst the symptoms were mild in the emergency department the symptoms are unchanged. The patient has experienced similar episodes in the past. The patient has been generally weak over the last few days and had one episode of blood in the stool a few days ago. Her last transfusion was in the Spring. Historical: - Allergies: 16:03 Betapace; aj 16:03 Ferrous Gluconate; aj 16:03 Sulfa (Sulfonamide Antibiotics); aj 16:03 Trazodone; aj 16:03 Zutripro; aj 16:03 Demerol; aj - Home Meds: 16:03 allopurinol 100 mg Oral tab 1 tab once daily [Active]; amlodipine 5 mg tab 1 tab once aj daily [Active]; calcium acetate 667 mg Oral cap 1 caps with meals [Active]; Dialyvite 800 with Zinc 15 0.8-15 mg Oral tab daily [Active]; levothyroxine 125 mcg tab 1 tab once daily [Active]; omeprazole 40 mg Oral cpDR 1 cap once daily [Active]; prednisone 10 mg Oral tab once daily [Active]; pravastatin 40 mg Oral tab 1 tab once daily [Active]; Poppy-Taisha 0.8 mg Oral tab [Active]; tadalafil Oral 1 tab once daily [Active]; Vitamin D3 5,000 unit Oral tab daily [Active]; - PMHx: 16:03 CHF; Cirrhosis; CVA; Dialysis; GI Bleed; Gout; Hyperlipidemia; Hypertension; aj Hypothyroidism; seasonal allergies; - Immunization history:: Adult Immunizations up to date. - Social history:: Smoking status: Patient/guardian denies using tobacco. - Ebola Screening: : Patient negative for fever greater than or equal to 101.5 degrees Fahrenheit, and additional compatible Ebola Virus Disease symptoms Patient denies exposure to infectious person Patient denies travel to an Ebola-affected area in the 21 days before illness onset No symptoms or risks identified at this time. ROS: 18:53 Constitutional: Negative for fever, chills, and weight loss - generally weak Eyes: kdr Negative for injury, pain, redness, and discharge, Neck: Negative for injury, pain, and swelling, Cardiovascular: Negative for chest pain, palpitations, and edema, Respiratory: Negative for shortness of breath, cough, wheezing, and pleuritic chest pain, Abdomen/GI: Negative for abdominal pain, nausea, vomiting, diarrhea, and constipation, Back: Negative for injury and pain, : Negative for injury, bleeding, discharge, and swelling, MS/Extremity: Negative for injury and deformity, Skin: Negative for injury, rash, and discoloration, Neuro: Negative for headache, weakness, numbness, tingling, and seizure activity. Psych: Negative for depression, anxiety, suicide ideation, homicidal ideation, and hallucinations, Allergy/Immunology: Negative for hives, rash, and allergies, Endocrine: Negative for neck swelling, polydipsia, polyuria, polyphagia, and marked weight changes, Hematologic/Lymphatic: Negative for swollen nodes, abnormal bleeding, and unusual bruising. Exam: 18:53 Constitutional: This is a well developed, well nourished patient who is awake, alert, kdr and in no acute distress. Head/Face: Normocephalic, atraumatic. Eyes: Pupils equal round and reactive to light, extra-ocular motions intact. Lids and lashes normal. Conjunctiva and sclera are non-icteric and not injected. Cornea within normal limits. Periorbital areas with no swelling, redness, or edema. Neck: Trachea midline, no thyromegaly or masses palpated, and no cervical lymphadenopathy. Supple, full range of motion without nuchal rigidity, or vertebral point tenderness. No Meningismus. Chest/axilla: Normal chest wall appearance and motion. Nontender with no deformity. No lesions are appreciated. Cardiovascular: Regular rate and rhythm with a normal S1 and S2. No gallops, murmurs, or rubs. Normal PMI, no JVD. No pulse deficits. Respiratory: Lungs have equal breath sounds bilaterally, clear to auscultation and percussion. No rales, rhonchi or wheezes noted. No increased work of breathing, no retractions or nasal flaring. Back: No spinal tenderness. No costovertebral tenderness. Full range of motion. Skin: Warm, dry with normal turgor. Normal color with no rashes, no lesions, and no evidence of cellulitis. MS/ Extremity: Pulses equal, no cyanosis. Neurovascular intact. Full, normal range of motion. Neuro: Awake and alert, GCS 15, oriented to person, place, time, and situation. Cranial nerves II-XII grossly intact. Motor strength 5/5 in all extremities. Sensory grossly intact. Cerebellar exam normal. Normal gait. Psych: Awake, alert, with orientation to person, place and time. Behavior, mood, and affect are within normal limits. Vital Signs: 16:03 BP 126 / 68; Pulse 94; Resp 20; Temp 96.6; Pulse Ox 92% on R/A; Weight 39.92 kg; Height aj 5 ft. 1 in. (154.94 cm) (R); 18:00 BP 155 / 59; Pulse 83; Resp 18; Pulse Ox 100% on 2 lpm NC; jl7 19:00 BP 108 / 55; Pulse 69; Resp 18; Pulse Ox 100% on 2 lpm NC; ea 20:00 BP 108 / 46; Pulse 74; Resp 18; Pulse Ox 100% ; ea 21:08 BP 126 / 58; Pulse 68; Resp 19; Temp 97; Pulse Ox 99% ; Pain 0/10; ea 21:55 BP 121 / 63; Pulse 76; Resp 18; Pulse Ox 100% on 2 lpm NC; Pain 0/10; ea 16:03 Body Mass Index 16.63 (39.92 kg, 154.94 cm) aj MDM: 21:00 Patient medically screened. ps1 21:01 Data reviewed: vital signs, lab test result(s), CBC, and as a result, I will admit ps1 patient. ED course: patient currently asymptomatic. Will transfuse with dialysis in AM. Spoke with Sathish and Leticia. 05/22 17:21 Order name: CBC with Diff; Complete Time: 21:38 kdr 05/22 17:21 Order name: Chem 7; Complete Time: 20:27 kdr 05/22 18:04 Order name: Type And Screen sg 05/22 20:25 Order name: CBC Smear Scan; Complete Time: 21:38 EDMS 05/22 21:28 Order name: Basic Metabolic Panel EDNJ 05/22 21:28 Order name: Basic Metabolic Panel EDNJ 05/22 18:26 Order name: Misc. Order; Complete Time: 18:47 05/22 21:28 Order name: CONS Physician Consult EDNJ 05/22 21:28 Order name: Regular EDMS 05/22 21:28 Order name: CBC with Automated Diff EDMS 05/22 21:28 Order name: CBC with Automated Diff EDMS Administered Medications: No medications were administered Disposition: 05/22/18 21:01 Hospitalization ordered by Dilan Kelly for Observation. Preliminary diagnosis are Anemia, Fatigue, Encounter for dialysis, Melena. - Bed requested for Telemetry/MedSurg (observation). - Status is Observation. ea - Condition is Fair. - Problem is an acute exacerbation. - Symptoms are unchanged. UTI on Admission? No Signatures: Dispatcher MedHo EDNJ Shelby Sosa RN RN kl Gay, Steven, RN RN sg Myers, Amanda, RN RN aj Rittger, Kevin, MD MD [facility] Dione Mendoza RN RN ea Singer, Phillip, MD MD ps1 Corrections: (The following items were deleted from the chart) 21:41 21:01 Hospitalization Ordered by Dilan Kelly MD for Observation. Preliminary diagnosis kl is Anemia; Fatigue; Encounter for dialysis; Melena. Bed requested for Telemetry/MedSurg (observation). Status is Observation. Condition is Fair. Problem is an acute exacerbation. Symptoms are unchanged. UTI on Admission? No. ps1 22:11 21:41 05/22/2018 21:01 Hospitalization Ordered by Dilan Kelly MD for Observation. ea Preliminary diagnosis is Anemia; Fatigue; Encounter for dialysis; Melena. Bed requested for Telemetry/MedSurg (observation). Status is Observation. Condition is Fair. Problem is an acute exacerbation. Symptoms are unchanged. UTI on Admission? No. kl
[2018-05-22] MEDS ORDERED: ONDANSETRON 4 MG/2 ML VIAL IV PRN (21:19)
--- NOTE | 2018-05-22 22:12 | ER ---
Nurse's Notes [facility] Name: Stefany Sauer Age: 82 yrs Sex: Female : 1935 Arrival Date: 05/22/2018 Time: 15:38 Bed 2 Private MD: Dilan Kelly Diagnosis: Anemia;Fatigue;Encounter for dialysis;Melena Presentation: 05/22 16:01 Presenting complaint: Patient states: Sent by Dr Jenkins for blood transfusion. Was aj told to "go to ER and that they would have everything". Transition of care: patient was not received from another setting of care. Onset of symptoms was May 22, 2018. Risk Assessment: Do you want to hurt yourself or someone else? Patient reports no desire to harm self or others. Initial Sepsis Screen: Does the patient meet any 2 criteria? No. Patient's initial sepsis screen is negative. Does the patient have a suspected source of infection? No. Patient's initial sepsis screen is negative. Care prior to arrival: None. 16:01 Method Of Arrival: Wheelchair aj 16:01 Acuity: SHEA 3 aj Triage Assessment: 16:03 General: Appears in no apparent distress. comfortable, Behavior is calm, cooperative, aj appropriate for age. Pain: Denies pain. Neuro: Level of Consciousness is awake, alert, obeys commands, Oriented to person, place, time, situation, Appropriate for age. Respiratory: Airway is patent Respiratory effort is even, unlabored, Respiratory pattern is regular, symmetrical. Derm: Skin is intact, is healthy with good turgor, Skin is pink, warm \\T\\ dry. normal. Historical: - Allergies: 16:03 Betapace; aj 16:03 Ferrous Gluconate; aj 16:03 Sulfa (Sulfonamide Antibiotics); aj 16:03 Trazodone; aj 16:03 Zutripro; aj 16:03 Demerol; aj - Home Meds: 16:03 allopurinol 100 mg Oral tab 1 tab once daily [Active]; amlodipine 5 mg tab 1 tab once aj daily [Active]; calcium acetate 667 mg Oral cap 1 caps with meals [Active]; Dialyvite 800 with Zinc 15 0.8-15 mg Oral tab daily [Active]; levothyroxine 125 mcg tab 1 tab once daily [Active]; omeprazole 40 mg Oral cpDR 1 cap once daily [Active]; prednisone 10 mg Oral tab once daily [Active]; pravastatin 40 mg Oral tab 1 tab once daily [Active]; Poppy-Taisha 0.8 mg Oral tab [Active]; tadalafil Oral 1 tab once daily [Active]; Vitamin D3 5,000 unit Oral tab daily [Active]; - PMHx: 16:03 CHF; Cirrhosis; CVA; Dialysis; GI Bleed; Gout; Hyperlipidemia; Hypertension; aj Hypothyroidism; seasonal allergies; - Immunization history:: Adult Immunizations up to date. - Social history:: Smoking status: Patient/guardian denies using tobacco. - Ebola Screening: : Patient negative for fever greater than or equal to 101.5 degrees Fahrenheit, and additional compatible Ebola Virus Disease symptoms Patient denies exposure to infectious person Patient denies travel to an Ebola-affected area in the 21 days before illness onset No symptoms or risks identified at this time. Screenin:18 Abuse screen: Denies threats or abuse. Denies injuries from another. Nutritional jl7 screening: No deficits noted. Tuberculosis screening: No symptoms or risk factors identified. Fall Risk IV access (20 points). Total Alva Fall Scale indicates No Risk (0-24 pts). Assessment: 17:18 General: Appears in no apparent distress. comfortable. Pain: Complains of pain in right jl7 lower quadrant and left lower quadrant Pain does not radiate. Quality of pain is described as "It's not too bad, it's just a little crampy.". Neuro: Level of Consciousness is awake, alert, obeys commands, Oriented to person, place, time, situation. Cardiovascular: Patient's skin is warm and dry. Respiratory: Airway is patent Respiratory effort is even, unlabored, Respiratory pattern is regular, symmetrical. GI: Abdomen is round non-distended, Reports bloody stool. : No signs and/or symptoms were reported regarding the genitourinary system. EENT: No signs and/or symptoms were reported regarding the EENT system. Derm: Skin is pink, warm \\T\\ dry. Musculoskeletal: No signs and/or symptoms reported regarding the musculoskeletal system. 18:25 Reassessment: Lab at bedside for blood draw. Pt's bilateral upper and lower extremities jl7 noted to have fluid. Per Dr. Cao, laborer demolition can attempt to obtain blood draw from foot. 19:00 General: Appears in no apparent distress. comfortable. Pain: Complains of pain in ea anterior aspect of right upper chest Pain does not radiate. Pain currently is 5 out of 10 on a pain scale. Quality of pain is described as aching, pt reports she had shunt placement today at [facility] and the area is sore Pain began 4 hours ago. Neuro: Level of Consciousness is awake, alert, obeys commands, Oriented to person, place, time, situation. Cardiovascular: Heart tones S1 S2 present Patient's skin is warm and dry. Cardiovascular: Dialysis shunt: in the anterior aspect of right upper chest, right arm and left arm, with palpable thrill, with mild edema, no bleeding noted. Respiratory: Airway is patent Respiratory effort is even, unlabored, Respiratory pattern is regular, symmetrical, Breath sounds are clear bilaterally. GI: Abdomen is non-distended, Bowel sounds present X 4 quads. EENT: No signs and/or symptoms were reported regarding the EENT system. Derm: Skin is pink, warm \\T\\ dry. Musculoskeletal: No signs and/or symptoms reported regarding the musculoskeletal system. 20:17 Reassessment: Patient and/or family updated on plan of care and expected duration. Pain ea level reassessed. Patient is alert, oriented x 3, equal unlabored respirations, skin warm/dry/pink. 20:41 Reassessment: Patient and/or family updated on plan of care and expected duration. Pain ea level reassessed. Patient is alert, oriented x 3, equal unlabored respirations, skin warm/dry/pink. Physician at bedside updating patient and family on plan of care. 21:08 Reassessment: Patient and/or family updated on plan of care and expected duration. Pain ea level reassessed. Patient is alert, oriented x 3, equal unlabored respirations, skin warm/dry/pink. 21:58 Reassessment: Report give to Kaylin RN on second floor. ea 22:09 Reassessment: Patient and/or family updated on plan of care and expected duration. Pain ea level reassessed. Patient is alert, oriented x 3, equal unlabored respirations, skin warm/dry/pink. Pt transferred via stretcher per [facility], accompanied by family, tolerated well. Vital Signs: 16:03 BP 126 / 68; Pulse 94; Resp 20; Temp 96.6; Pulse Ox 92% on R/A; Weight 39.92 kg; Height aj 5 ft. 1 in. (154.94 cm) (R); 18:00 BP 155 / 59; Pulse 83; Resp 18; Pulse Ox 100% on 2 lpm NC; jl7 19:00 BP 108 / 55; Pulse 69; Resp 18; Pulse Ox 100% on 2 lpm NC; ea 20:00 BP 108 / 46; Pulse 74; Resp 18; Pulse Ox 100% ; ea 21:08 BP 126 / 58; Pulse 68; Resp 19; Temp 97; Pulse Ox 99% ; Pain 0/10; ea 21:55 BP 121 / 63; Pulse 76; Resp 18; Pulse Ox 100% on 2 lpm NC; Pain 0/10; ea 16:03 Body Mass Index 16.63 (39.92 kg, 154.94 cm) aj ED Course: 15:38 Patient arrived in ED. am2 15:38 Dilan Kelly MD is Private Physician. am2 16:02 Triage completed. aj 16:03 Arm band placed on left wrist. Patient placed in waiting room, Patient notified of wait aj time. 17:17 Med Cao MD is Attending Physician. kdr 17:18 Patient has correct armband on for positive identification. Placed in gown. Bed in low jl7 position. Call light in reach. Side rails up X 1. ocean biologist on. Pulse ox on. NIBP on. Warm blanket given. 17:22 Yanci Lebron RN is Primary Nurse. jl7 18:00 Missed attempt(s): 22 gauge in right antecubital area. jl7 18:53 Report given to JONATHAN Parham. jl7 19:11 Primary Nurse role handed off by Yanci Lebron RN jl7 19:11 Dioen Mendoza, JONATHAN is Primary Nurse. ea 19:20 Inserted 18 gauge 8 cm midline to right upper arm basilic vein on first attempt. Line fc with good blood return and flushes well. 21:00 Dilan Kelly MD is Hospitalizing Provider. ps1 21:58 No provider procedures requiring assistance completed. Patient admitted, IV remains in ea place. Administered Medications: No medications were administered Outcome: 21:01 Decision to Hospitalize by Provider. ps1 21:15 Admitted to Med/surg accompanied by tech, via stretcher, room 214, on monitor, Report ea called to Kaylin CASTILLO 21:15 Instructed on the need for admit. 21:58 Condition: stable ea 22:11 Patient left the ED. ea Signatures: Ema Ibarra, RN Med Ding MD MD kdr Chretien, Felicia RN RN Yanci Orta RN RN jl7 Ema Webb am2 Dione Mendoza RN RN ea Singer, Phillip, MD MD ps1 Corrections: (The following items were deleted from the chart) 16:04 16:03 Arm band placed on left wrist. Patient placed in an exam room, davie broderick 18:48 18:25 Reassessment: Lab at bedside for blood draw. Pt's upper extremities noted to have jl7 fluid. Per Dr. Cao, laborer demolition can obtain blood draw from foot. jl7 22:11 19:00 BP 108 / 55; Pulse 69bpm; Resp 18bpm; Pulse Ox 100% RA; ea ea 22:11 21:55 BP 121 / 63; Pulse 76bpm; Resp 18bpm; Pulse Ox 100%; Pain 0/10; ea ea
[2018-05-22] MEDS ORDERED: EPOETIN ALFA 10,000 UNIT/ML VIAL IV SCH (22:45)
[2018-05-22] MEDS ORDERED: NA CHLORIDE 0.9% 1,000 ML IV PRN (22:45)
[2018-05-22] MEDS ORDERED: MANNITOL 25% 12.5 GM/50 ML VIAL IV PRN (22:45)
[2018-05-22] MEDS ORDERED: EPOETIN ALFA 10,000 UNIT/ML VIAL SQ ONE (22:49)
[2018-05-22 22:55] VITALS: BMI 21.4
[2018-05-22] MEDS: ACETAMINOPHEN 500 MG TAB PO PRN (22:58)
[2018-05-22] MEDS ORDERED: ALBUMIN HUMAN 25% 50 ML IV SCH (23:00)
[2018-05-23 04:49] LABS: Absolute Lymphocytes (CBC) 1.4 K/uL (0.7-4.9); Absolute Monocytes 0.6 K/uL (0.1-1.3); Absolute Neutrophil 6.6 K/uL (1.8-8.0); Basophils % 0.6 % (0-1.3); Eosinophils % 0.6 % (0-4.4); Lymphocytes % 15.8 % (15.3-44.8); MCH 34.6 pg (27.0-35.0); MCV 103.7 fL (80-100); MPV 9.5 fL (7.6-11.3); Monocytes % 6.6 % (3.3-12.3); RBC Red Blood Cell Count 1.91 M/uL (3.86-4.86)
[2018-05-23 04:59] LABS: Hematocrit 19.8 % (36.0-45.0)
[2018-05-23 05:07] LABS: Albumin 2.6 g/dL (3.4-5.0); Bilirubin Direct 0.1 mg/dL (0-0.2); Bilirubin Total 0.3 mg/dL (0.2-1.0); Magnesium 1.8 mg/dL (1.8-2.4); Phosphorus 2.2 mg/dL (2.5-4.9); Potassium 3.3 mmol/L (3.5-5.1); Protein, Total 4.8 g/dL (6.4-8.2); Uric Acid 3.1 mg/dL (2.6-6.0)
[2018-05-23 05:33] LABS: Blood Morphology Comment NOTED (NOT SEEN); Platelet Estimate ADEQ; Polychromasia 2+; Target Cells 1+
[2018-05-23] MEDS: MULTIVITAMINS,THERAPEUT 1 TAB PO SCH ×2 (08:54→21:11)
[2018-05-23] MEDS: PANTOPRAZOLE 40MG TABLET PO SCH (08:54)
[2018-05-23] MEDS: CA ACETATE 667 MG CAP PO SCH ×4 (08:54→21:11)
[2018-05-23] MEDS: VITAMIN D 1000 UNIT TAB PO SCH (08:54)
[2018-05-23] MEDS: VITAMIN D 5,000 UNIT CAP PO SCH (08:54)
[2018-05-23] MEDS: LOTEPREDNOL ETABONATE OPTH SCH ×2 (08:55→21:00)
[2018-05-23] MEDS: ALLOPURINOL 100 MG TAB PO SCH (08:55)
[2018-05-23] MEDS: HOME MED 1 EA UNK (Cyclosporine [Restasis] 1 DROP) OPTH SCH ×2 (08:55→21:00)
[2018-05-23] MEDS: LEVOTHYROXINE SOD 0.125 MG TAB PO SCH (08:55)
[2018-05-23] MEDS: [UNRECOGNIZED DRUG - OTHER] OPTH SCH ×2 (08:56→21:00)
[2018-05-23] MEDS: AMLODIPINE 5 MG TAB PO SCH (08:56)
[2018-05-23] MEDS: SODIUM CHLORIDE OPTH SCH ×2 (08:56→21:00)
[2018-05-23] MEDS: predniSONE 10 MG TAB PO SCH (09:00)
[2018-05-23] MEDS ORDERED: POTASSIUM CL SA 10 MEQ TAB PO ONE (09:00)
[2018-05-23] MEDS ORDERED: NA CHLORIDE 0.9% 250 ML ONE ×2 (09:30→15:35)
[2018-05-23] MEDS: TRAMADOL HCL 50 MG TAB PO PRN (18:22)
[2018-05-23] MEDS: ACETAMINOPHEN 500 MG TAB PO PRN (18:39)
[2018-05-23 20:15] LABS: Hematocrit 42.6 % (36.0-45.0)
--- NOTE | 2018-05-23 20:37 | RAD REPORT ---
EXAM DESCRIPTION: US - Extremity Venous Uni Ltd - 05/23/2018 7:53 pm CLINICAL HISTORY: Right arm pain and swelling COMPARISON: None. TECHNIQUE: Real-time sonographic evaluation of the right upper extremity deep venous systems was per formed. Grayscale and Doppler interrogation performed. FINDINGS: Normal compressibility, flow augmentation, phasic flow and spontaneous flow are identified in the right upper extremity deep venous system. No intraluminal filling defects seen. Internal jugu lar and subclavian veins are normal as well. IMPRESSION: No DVT in the right upper extremity.
[2018-05-23] MEDS ORDERED: ATORVASTATIN 10 MG TAB PO SCH (21:00)
[2018-05-23] MEDS ORDERED: ADCIRCA 20 MG PO SCH (21:00)
--- NOTE | 2018-05-23 21:27 | P.CNS ---
Date of Consult: 05/23/18 Reason for Consult: ESRD Requesting Physician: Dilan Kelly Primary Care Provider: Dr. Kelly Chief Complaint: Weakness & Fatigue History of Present Illness: 82 yo HF CKD presented to the ER with moderate to severe, progressive anemia in the setting of ESRD with associated weakness and fatigue. No modifying fx. Recieving Epo therapy at HD. Denies hematochezia and melena. 18:53 This 82 yrs old Female presents to ER via Wheelchair with complaints of Blood kdr transfusion. 18:53 Dr. Johnson sent patient for transfusion. Onset: The symptoms/episode began/occurred kdr gradually. Severity of symptoms: At their worst the symptoms were mild in the emergency department the symptoms are unchanged. The patient has experienced similar episodes in the past. The patient has been generally weak over the last few days and had one episode of blood in the stool a few days ago. Her last transfusion was in the Spring. Allergies sotalol HCl [From Betapace] Allergy (Severe, Verified 05/22/18 22:32) syncope, resp arrest chlorpheniramine [From Zutripro] Allergy (Intermediate, Verified 05/22/18 22:32) Itching/Hives/Rash/hallucinations docusate sodium [From Ferralet 90 Dual-Iron Delivery] Allergy (Intermediate, Verified 05/22/18 22:32) nausea vomitting rash Fe carbonyl-Fe gluconate [From Ferralet 90 Dual-Iron Delivery] Allergy ( Intermediate, Verified 05/22/18 22:32) nausea vomitting rash/hives hydrocodone bitartrate [From Zutripro] Allergy (Intermediate, Verified 05/22/18 22:32) HALLUCINATE pseudoephedrine HCl [From Zutripro] Allergy (Intermediate, Verified 05/22/18 22: 32) Itching/Hives/Rash/hallucinations cyanocobalamin [From Ferralet 90 Dual-Iron Delivery] Allergy (Verified 05/22/18 22:32) Unknown sodium ferric gluconate complex [From Ferrlecit] Allergy (Verified 05/22/18 22: 32) Hives sucrose [From Ferrlecit] Allergy (Verified 05/22/18 22:32) Hives Sulfa (Sulfonamide Antibiotics) Allergy (Verified 05/22/18 22:32) Anaphylaxis sulfasalazine [Sulfasalazine] Adverse Reaction (Verified 05/22/18 22:32) Anaphylaxis trazodone Adverse Reaction (Verified 05/22/18 22:32) Anaphylaxis Iron (Ferrous Gluconate) Allergy (Severe, Uncoded 04/29/16 02:03) Hives f Allergy (Uncoded 10/06/16 06:32) Unknown fe Allergy (Uncoded 10/22/16 15:34) Unknown Home medications list reviewed: Yes Home Medications: Adcirca 20 mg PO BEDTIME 05/23/18 Allopurinol 1 tab PO SEECOM 05/23/18 Amlodipine Besylate 1 tab PO DAILY 05/23/18 Calcium Acetate 1 cap PO SEECOM 05/23/18 Cholecalciferol (Vitamin D3) [Vitamin D3] 1 cap PO DAILY 05/23/18 Cyclosporine [Restasis] 1 drop OPTH BID 05/23/18 Hp50 Dialyvite 800 + Zinc 1 tab PO BID 05/23/18 Levothyroxine Sodium 1 tab PO DAILY 05/23/18 Loteprednol Etabonate [Lotemax] 1 drop OPTH BID 05/23/18 Omeprazole [Prilosec] 1 cap PO SEECOM 05/23/18 Pravastatin Sodium [Pravachol] 1 tab PO BEDTIME 05/23/18 Sodium Chloride [Carin-128] 1 drop OPTH BID 05/23/18 Tramadol HCl [Ultram] 1 tab PO Q6H PRN 05/23/18 predniSONE [Deltasone*] 1 tab PO DAILY 05/23/18 - Past Medical/Surgical History Diabetic: No -: Hypothyroidism -: Pulmonary hypertension -: Cirrhosis -: CHF -: hyperlipdidemia -: CVA -: ESRD -: GI bleed -: angiodyplasia -: Gout -: arthritis -: diverticulosis -: appy -: hernia repair -: angioplasty -: cataracts sx both eyes -: L arm graft -: replace catheter from 09/25/12 -: sx to corect blocked grft right arm -: sx to close off right arm graft - Family History Father Medical History: Stroke Sister Medical History: Cancer Notes: Breast Ca - Social History Smoking Status: Unknown if ever smoked Alcohol use: No CD- Drugs: No Caffeine use: Yes Place of Residence: Home Review of Systems 10-point ROS is otherwise unremarkable General: Weakness, Malaise Respiratory: SOB with Excertion Cardiovascular: Edema Neurological: Weakness Physical Examination Temp Pulse Resp BP Pulse Ox 97.5 F 100 H 18 139/56 L 96 05/23/18 20:00 05/23/18 20:00 05/23/18 20:00 05/23/18 20:00 05/23/18 20:00 General: Oriented x3, Cooperative HEENT: Atraumatic Neck: Supple Respiratory: Clear to auscultation bilaterally, Normal air movement Cardiovascular: Regular rate/rhythm, Edema Gastrointestinal: Soft and benign, Non-distended Musculoskeletal: No clubbing, No contractures Integumentary: No rashes, No cyanosis Neurological: Normal speech Hgb 7.4 Blood work reviewed in the chart. Conclusions/Impression: A/ Anemia in CKD. Thrombocytopenia. ESRD on HD. HTN with CKD. Diastolic CHF, chronic. Pulmonary HTN. DESMOND/ Secondary HyperPTH. HypoPO4. Hypokalemia. Moderate Malnutrition. Hypoalbuminemia. Gout. P/ Continue current POC and Medications. Acute HD ordered with UF. No heparin with HD. Seen and examined on HD. PRBCs given with HD. Replete potassium. Restart home medications as indicated. No NSAIDs. AM labs. Daily weight. Thank you kindly for the consultation.
[2018-05-24] MEDS: LEVOTHYROXINE SOD 0.125 MG TAB PO SCH ×2 (05:50→05:53)
[2018-05-24] MEDS: PANTOPRAZOLE 40MG TABLET PO SCH (05:50)
[2018-05-24] MEDS: CA ACETATE 667 MG CAP PO SCH ×2 (07:30→11:30)
[2018-05-24] MEDS: VITAMIN D 1000 UNIT TAB PO SCH (08:53)
[2018-05-24] MEDS: MULTIVITAMINS,THERAPEUT 1 TAB PO SCH (08:53)
[2018-05-24] MEDS: VITAMIN D 5,000 UNIT CAP PO SCH (08:53)
[2018-05-24] MEDS: predniSONE 10 MG TAB PO SCH (08:54)
[2018-05-24] MEDS: ALLOPURINOL 100 MG TAB PO SCH (08:55)
[2018-05-24] MEDS: AMLODIPINE 5 MG TAB PO SCH (08:55)
[2018-05-24] MEDS: TRAMADOL HCL 50 MG TAB PO PRN (08:56)
[2018-05-24] MEDS: LOTEPREDNOL ETABONATE OPTH SCH (09:00)
[2018-05-24] MEDS: HOME MED 1 EA UNK (Cyclosporine [Restasis] 1 DROP) OPTH SCH (09:00)
[2018-05-24] MEDS: SODIUM CHLORIDE OPTH SCH (09:00)
[2018-05-24] MEDS: [UNRECOGNIZED DRUG - OTHER] OPTH SCH (09:00)
--- NOTE | 2018-05-24 09:50 | SS ---
Date of Admission: 05/23/2018 Chief Complaint: Low blood count. History Of Present Illness: This is an 82-year-old female patient who has end- stage renal disease, anemia with chronic kidney disease, and occasional rectal bleeding problem. She had blood work done sometime earlier this week with her good humor vendor and yesterday she was contacted to come to the emergency room by good humor vendor because of her blood work had shown that she had a significant anemia problem with hemoglobin in the range of 6, and she was advised to come to ER for admission and blood transfusion. She did notice a very small amount of blood per rectum yesterday, but she has not had any significant amount of rectal bleeding lately at all. Denies any fever, chills, nausea, vomiting. After she was evaluated in the ER, she was admitted to the hospital under my service. She goes for dialysis on Saturday, Saturday, and Saturday. Medications: List reviewed. Review of Systems: GI: As mentioned above. All other systems reviewed and negative. Allergies: TO SOTALOL, SULFA, TRAZODONE, IRON, AND ZUTRIPRO. Family History: Mother had Alzheimer's, breast cancer. Brother, hypertension. Father, myocardial infarction. Social History: Negative for smoking, alcohol use. Past Surgical History: Appendectomy, umbilical hernia repair, cataract surgery , dialysis, graft placement, surgery for bowel obstruction. Yesterday, she had replacement of her dialysis catheter placement, which was done per her good humor vendor out of town. Past Medical History: End-stage renal disease, on hemodialysis; insomnia; thrombocytopenia; osteoarthritis at multiple sites; anemia due to chronic kidney disease; GI bleeding; pulmonary hypertension; osteoporosis; hyperlipidemia; gastroesophageal reflux disease; hypertension; gout; hypothyroidism. Physical Examination: Vital Signs: Temperature 97.7, pulse 65, respiratory rate 16, blood pressure 95 /54, oxygen saturation 99% on 2 L nasal cannula. Height 5 feet 1 inch, weight 99 pounds. General: Awake, alert, oriented, not in distress. HEENT: Head atraumatic, normocephalic. Conjunctivae nonerythematous. Sclerae white. Mouth, no thrush or edema noted. Ears/Nose, no mass, lesion, discharge noted. Neck: Supple. No JVD, lymph nodes, bruit, thyromegaly noted. Lungs: Bilateral good equal air entry. Clear to auscultation. No rhonchi. No rales. Heart: Presence of systolic murmur unchanged. Abdomen: Soft, bowel sounds normal. No guarding, rigidity, tenderness, mass, hepatosplenomegaly, distention, or bruit noted. Extremities: No leg edema. No calf tenderness. Skin: No rash, ulcer, cellulitis. Lymphatics: No lymph node enlargement in neck, supraclavicular, infraclavicular region. Neuro: No focal neurological deficit. Chest: Unremarkable. External Genitalia: Deferred. Rectal: Deferred. Labs: Last night when she came into ER, white count 10.3, hemoglobin 7.4, platelets 129. This morning, white count 8.6, hemoglobin 6.6, platelets 123. Last night, sodium was 144, potassium 3, chloride 107, bicarb 29, BUN 32, creatinine 3.70, glucose 105. This morning, sodium 145, potassium 3.3, chloride 109, bicarb 29, BUN 40, creatinine 4.10, glucose 104. Liver function tests unremarkable. Hospital Course: After patient was evaluated in the ER, she was admitted to the hospital for blood transfusion. Nephrology consultation was obtained from Dr. Johnson. The patient will have dialysis today, and as per Dr. Johnson will go ahead and transfuse her 3 units of PRBC during dialysis. After her blood transfusion is completed, we will get blood test done to check posttransfusion hemoglobin, and depending on that result, we will decide if she is stable enough to go home today or not. The patient and her family, they would like for her to go home if possible and medically she is stable for discharge provided her blood test is okay. Details and plan of treatment discussed with the patient and her family. Final Diagnoses: 1. Anemia due to chronic kidney disease. 2. End-stage renal disease, on hemodialysis. 3. Thrombocytopenia. 4. Hypertension. 5. Hypothyroidism. 6. Hyperlipidemia. 7. Gastroesophageal reflux disease. 8. Gout. 9. Osteoporosis. 10. Pulmonary hypertension. 11. Insomnia. 12. Osteoarthritis, multiple sites. DIANA/MODL Voice ID: [id number] Report ID: [id number] MACARENA
[2018-05-24] MEDS ORDERED: LIDOCAINE 5% PATCH TOP SCH (11:00)
--- NOTE | 2018-05-24 12:37 | PN ---
Date of Progress Note: 05/24/2018 Subjective: The patient was seen this morning for followup. Yesterday after dialysis, our plan was to discharge her to go home in the evening time, and the patient wanted to go home, but then nurse co ntacted and informed me that the patient was complaining of severe pain in her right upper extremity, mostly in the right shoulder area as I understand now after talking to her. She has a mid line, whi ch was placed in the emergency room and we did obtain venous Doppler of right upper extremity, which came back negative for any DVT. This morning when I saw her, the patient's daughter was present with her at bedside. She informed me that the patient went to [facility] on for dialysis catheter placement, which was placed in the right side in the right subclavian region, and after she came home from this procedure, she started complaining of right shoulder pain and this pain got lot w orse yesterday. She also has swelling of the right shoulder and she has severe pain with any attempt to move the right upper extremity and has some tenderness over shoulder. There is no bruising over shoulder area. Around the catheter insertion site in the right subclavian region, skin is slightly p ink in color and the patient's daughter says that this looks actually better today than yesterday. Objective: Lungs: Clear to auscultation. Heart: Sounds normal. Abdomen: Soft bowel sounds normal. No guarding, rigidity, tenderness, or distention. Extremities: The patient does have some swelling of the right hand. Laboratory Data: Yesterday after blood transfusion, hemoglobin was 14. Impression: 1.Right shoulder pain, rule out dislocation. 2.End-stage renal disease, on hemodialysis. 3.Anemia due to chronic kidney disease. 4.Osteoarthritis, multiple sites. Plan: We will go ahead and get an x-ray of the right shoulder and Lidoderm patch was ordered to be p laced on the right shoulder. The patient's daughter says that she does have some Lidoderm patch at h ome and they will use it upon discharge, but we need to make sure there is no other emergent issue go ing on with the right shoulder and after we look at the x-ray results we will decide if orthopedic co nsultation is necessary or not. Otherwise, we will plan to discharge her to go home later today. De tails were discussed with the patient and family. DIANA/KELI Voice ID: [id number] Report ID: [id number]
[2018-05-24 13:36] VITALS: O2SAT 95
--- NOTE | 2018-05-24 14:27 | RAD REPORT ---
EXAM DESCRIPTION: RAD - Shoulder Right 2 View - 05/24/2018 1:57 pm CLINICAL HISTORY: shoulder pain, swelling COMPARISON: Shoulder Right 2 View dated 03/10/2013 FINDINGS: Prominent degenerative change involves the glenohumeral joint. High-riding humeral head is seen likely indicating underlying rotator cuff tear. No acute fracture or dislocation suspected. Rig ht-sided venous catheter is in place.
[2018-05-24 17:32] VITALS: BP 108/55; TEMP 97.4
--- NOTE | 2018-05-26 05:49 | DS ---
Date of Discharge: 05/24/2018 Disposition: Discharged to go home. Physical Examination: See copy of today's progress note dictation. Final Diagnoses: 1.Anemia due to chronic kidney disease. 2.End-stage renal disease, on hemodialysis. 3.Rotator cuff tear, right shoulder. 4.Thrombocytopenia. 5.Hypertension. 6.Hypothyroidism. 7.Hyperlipidemia. 8.Gastroesophageal reflux disease. 9.Gout. 10.Osteoporosis. 11.Pulmonary hypertension. 12.Osteoarthritis, multiple sites. 13.Insomnia. Hospital Course: This is an 82-year-old female patient admitted to the hospital with anemia problem. Please see dictated H and P for more information. Her initial hemoglobin was 7.4, repeat hemoglobi n 6.6. The patient was given 3 units of packed red cell blood transfusion with dialysis. Her hemogl obin after blood transfusion came up to 14, which not be actually her true hemoglobin as she is a sma ll person and this increase in hemoglobin is higher than expected increase with blood transfusions, b ut in any case, she did not require any further blood transfusion. A dialysis was provided per tenzin manzo from her hybrid technologist. She had a dialysis catheter replaced on of this week and after s he came home from this procedure, she started complaining of right shoulder pain and there was some s welling and that she started complaining of that as of night. Yesterday when I saw her, she was having lot more pain and some swelling of the right shoulder. Venous Doppler of the right upper extremity was negative for DVT. This was done because patient had midline in the right arm which everette branham placed when she came into our emergency room. We did obtain x-ray of the right shoulder, which was negative for fracture and no dislocation, but it did show right shoulder rotator cuff tear. Lidoder m patch was ordered to be placed on the right shoulder. The patient's daughter has Lidoderm patch at home and they will use it on a daily basis. The patient will benefit from outpatient orthopedic bassam santiagoation by orthopedic surgeon, and family will contact Dr. Isidro's office for appointment and nurse everette branham advised to contact him to let him know about x-ray finding and requesting appointment as soon as po ssible. The patient to follow up at my office per her scheduled appointment and the patient to abdullahi nue all prior home medication and to apply lidocaine patch daily. DIANA/MODL Voice ID: [id number] Report ID: [id number]
== END 2018-05-24 17:48 | disposition home or self-care (01) ==
LOC: ER 15:35 → 2ND 21:47
PROVIDERS: ADMIT Internal Medicine; ATTEND Internal Medicine
PROC: 30233N1 Transfusion of Nonautologous Red Blood Cells into Peripheral Vein, Percutaneous Approach (ICD-10-PCS; principal; 2018-05-23)
PROC: 5A1D70Z Performance of Urinary Filtration, Intermittent, Less than 6 Hours Per Day (ICD-10-PCS; 2018-05-23)
DX: I12.0 Hypertensive chronic kidney disease with stage 5 chronic kidney disease or end stage renal disease (principal); N18.6 End stage renal disease; Z99.2 Dependence on renal dialysis; D63.1 Anemia in chronic kidney disease; M75.101 Unspecified rotator cuff tear or rupture of right shoulder, not specified as traumatic; D69.6 Thrombocytopenia, unspecified; E03.9 Hypothyroidism, unspecified; E78.5 Hyperlipidemia, unspecified; K21.9 Gastro-esophageal reflux disease without esophagitis; M10.9 Gout, unspecified; M81.0 Age-related osteoporosis without current pathological fracture; I27.20 Pulmonary hypertension, unspecified; M15.9 Polyosteoarthritis, unspecified; G47.00 Insomnia, unspecified; Z88.5 Allergy status to narcotic agent; Z88.2 Allergy status to sulfonamides; Z88.8 Allergy status to other drugs, medicaments and biological substances; Z79.52 Long term (current) use of systemic steroids; Z86.73 Personal history of transient ischemic attack (TIA), and cerebral infarction without residual deficits; K74.60 Unspecified cirrhosis of liver; I13.2 Hypertensive heart and chronic kidney disease with heart failure and with stage 5 chronic kidney disease, or end stage renal disease; I50.32 Chronic diastolic (congestive) heart failure; N25.0 Renal osteodystrophy; N25.81 Secondary hyperparathyroidism of renal origin; E83.39 Other disorders of phosphorus metabolism; E44.0 Moderate protein-calorie malnutrition; Z68.1 Body mass index [BMI] 19.9 or less, adult
CPT/HCPCS: 36415; 36430; 73030; 80048 ×2; 80076; 82962; 83735; 84100; 84550; 85014; 85018; 85025 ×2; 86850; 86900; 86901; 93971; 99285; G0257; P9016 ×3; Q4081; J7512

== ENCOUNTER 2018-09-04 12:02 | Observation (INO) | payer OTHER ==
--- NOTE | 2018-09-04 14:14 | RAD REPORT ---
EXAM DESCRIPTION: RAD - Chest Single View - 09/04/2018 2:07 pm CLINICAL HISTORY: back pain Chest pain. COMPARISON: Chest Single View dated 03/26/2018; Chest Single View dated 07/26/2016; Chest Single View dated 07/25/2016; Chest Single View dated 05/05/2016 FINDINGS: Portable technique limits examination quality. [id number]-[id number] bilateral interstitial lung opacities likely represents pulmonary edema. Small pleur al effusions are present. The heart is moderately enlarged in size. Right-sided venous catheter has t ip in right atrium.Aortic atherosclerosis. IMPRESSION: Moderate CHF versus volume overload pattern.
[2018-09-04 14:19] LABS: Protime INR 0.89
[2018-09-04 14:22] LABS: Albumin 2.9 g/dL (3.4-5.0); Bilirubin Direct 0.2 mg/dL (0-0.2); Bilirubin Total 0.4 mg/dL (0.2-1.0); Potassium 3.8 mmol/L (3.5-5.1); Protein, Total 5.5 g/dL (6.4-8.2); Troponin (Emerg Dept Use Only) 0.08 ng/mL (0.0-0.045)
[2018-09-04 14:57] LABS: Absolute Lymphocytes (CBC) 0.5 K/uL (0.7-4.9); Absolute Monocytes 0.2 K/uL (0.1-1.3); Basophils % 0.3 % (0-1.3); Eosinophils % 0.2 % (0-4.4); Hematocrit 24.6 % (36.0-45.0); Lymphocytes % 4.3 % (15.3-44.8); RBC Red Blood Cell Count 2.45 M/uL (3.86-4.86)
[2018-09-04 15:48] LABS: Anisocytosis 1+; Blood Morphology Comment NOTED (NOT SEEN); Hypochromasia 1+; Platelet Estimate DECR; Poikilocytosis 1+; Polychromasia 1+
[2018-09-04 15:49] LABS: Ovalocytes SLIGHT
--- NOTE | 2018-09-04 17:33 | RAD REPORT ---
EXAM DESCRIPTION: RAD - Lumbar Spine 3 Views - 09/04/2018 4:39 pm CLINICAL HISTORY: Back pain FINDINGS: The bones are osteoporotic. Mild compression deformity involving the superior endplate of the L4 vertebral body is unchanged from June 2018. No acute fracture seen. No dislocation noted. Mild scoliosis of the spine
--- NOTE | 2018-09-04 17:37 | RAD REPORT ---
EXAM DESCRIPTION: RAD - Thoracic Spine Ap/Lat - 09/04/2018 4:38 pm CLINICAL HISTORY: Back pain FINDINGS: Although this area is not well evaluated due to osteoporosis and patient rotation there ap pears to be a mild compression deformity involving a midthoracic vertebral body which has developed s irving June 2018 No additional fracture is seen. Mild spondylosis. Mild scoliosis
[2018-09-04] MEDS ORDERED: MORPHINE 2 MG/ML SYR ONE (18:43)
[2018-09-04] MEDS ORDERED: ONDANSETRON 4 MG/2 ML VIAL ONE (18:43)
--- NOTE | 2018-09-04 19:00 | EDPHYS ---
Physician Documentation [facility] Name: Stefany Sauer Age: 83 yrs Sex: Female : 1935 Arrival Date: 09/04/2018 Time: 12:07 Bed 25 Private MD: Dilan Kelly ED Physician Med Cao HPI: 09/04 17:30 This 83 yrs old Female presents to ER via Wheelchair with complaints of kdr Breathing Difficulty, Back Pain. 17:30 The patient or guardian reports chest pain that is located primarily in the Posterior kdr Thorax and ribs including shoulders. Onset: last night, The patient has been having joint pain for some time and also recently had pain in her shoulders. Last night, she started having pain in her posterior thorax on top of the other ongoing pain in her joints and spine. The spine pain had been for some time as she had apparently fallen and was known to have a spinal fracture. She has not had any new trauma or injury. The pain does not radiate. Associated signs and symptoms: The patient has no apparent associated signs or symptoms. The chest pain is described as aching, sharp. Duration: The patient or guardian reports multiple episodes, that are intermittent, that wax and wane, with no pattern. Modifying factors: The symptoms are alleviated by nothing. the symptoms are aggravated by breathing, deep breath, movement, swallowing, twisting torso, walking. Severity of pain: At its worst the pain was moderate in the emergency department the pain has improved mildly. The patient has not experienced similar symptoms in the past. The patient has not recently seen a physician. Historical: - Allergies: 12:17 Betapace; aj1 12:17 Demerol; aj1 12:17 Ferrous Gluconate; aj1 12:17 Sulfa (Sulfonamide Antibiotics); aj1 12:17 Trazodone; aj1 12:17 Zutripro; aj1 - PMHx: 12:17 CHF; Cirrhosis; CVA; Dialysis; GI Bleed; Gout; Hyperlipidemia; Hypertension; aj1 Hypothyroidism; seasonal allergies; - Immunization history:: Adult Immunizations up to date. - Social history:: Smoking status: Patient/guardian denies using tobacco. - Ebola Screening: : Patient negative for fever greater than or equal to 101.5 degrees Fahrenheit, and additional compatible Ebola Virus Disease symptoms Patient denies exposure to infectious person Patient denies travel to an Ebola-affected area in the 21 days before illness onset No symptoms or risks identified at this time. ROS: 17:30 Constitutional: Negative for fever, chills, and weight loss, Eyes: Negative for injury, kdr pain, redness, and discharge, Neck: Negative for injury, pain, and swelling, Cardiovascular: Negative for chest pain, palpitations, and edema, Respiratory: Negative for shortness of breath, cough, wheezing, and pleuritic chest pain, Abdomen/GI: Negative for abdominal pain, nausea, vomiting, diarrhea, and constipation, : Negative for injury, bleeding, discharge, and swelling, MS/Extremity: Negative for injury and deformity, Skin: Negative for injury, rash, and discoloration, Neuro: Negative for headache, weakness, numbness, tingling, and seizure activity. Psych: Negative for depression, anxiety, suicide ideation, homicidal ideation, and hallucinations, Allergy/Immunology: Negative for hives, rash, and allergies. 17:30 Back: Positive for decreased range of motion, pain at rest, pain with movement, of the left scapular area, right scapular area, left subscapular area and right subscapular area. Exam: 22:31 Constitutional: This is a well developed, well nourished patient who is awake, alert, kdr and in no acute distress. Head/Face: Normocephalic, atraumatic. Eyes: Pupils equal round and reactive to light, extra-ocular motions intact. Lids and lashes normal. Conjunctiva and sclera are non-icteric and not injected. Cornea within normal limits. Periorbital areas with no swelling, redness, or edema. Neck: Trachea midline, no thyromegaly or masses palpated, and no cervical lymphadenopathy. Supple, full range of motion without nuchal rigidity, or vertebral point tenderness. No Meningismus. Chest/axilla: Normal chest wall appearance and motion. Nontender with no deformity. No lesions are appreciated. Respiratory: Lungs have equal breath sounds bilaterally, clear to auscultation and percussion except in bilateral bases. Few rales but no rhonchi or wheezes noted. No increased work of breathing, no retractions or nasal flaring. Abdomen/GI: Soft, non-tender, with normal bowel sounds. No distension or tympany. No guarding or rebound. No evidence of tenderness throughout. Back: No spinal tenderness. No costovertebral tenderness. Full range of motion. Skin: Warm, dry with normal turgor. Normal color with no rashes, no lesions, and no evidence of cellulitis. MS/ Extremity: Pulses equal, no cyanosis. Neurovascular intact. Full, normal range of motion. Neuro: Awake and alert, GCS 15, oriented to person, place, time, and situation. Cranial nerves II-XII grossly intact. Motor strength 5/5 in all extremities. Sensory grossly intact. Cerebellar exam normal. Normal gait. Psych: Awake, alert, with orientation to person, place and time. Behavior, mood, and affect are within normal limits. 22:31 Cardiovascular: Posterior thorax pain. Vital Signs: 12:17 BP 114 / 55; Pulse 82; Resp 18; Temp 97.3; Pulse Ox 93% on R/A; Weight 36.29 kg (R); aj1 Height 4 ft. 11 in. (149.86 cm) (R); Pain 8/10; 13:56 BP 123 / 68; Pulse 79; Resp 15; Temp 97.3(O); Pulse Ox 100% on 2 lpm NC; Pain 8/10; ed1 14:47 BP 124 / 65; Pulse 77; Resp 23; Pulse Ox 100% on 2 lpm NC; Pain 7/10; ed1 15:37 BP 132 / 69; Pulse 83; Resp 19; Pulse Ox 100% on 2 lpm NC; Pain 6/10; ed1 17:17 BP 128 / 62; Pulse 73; Resp 16; Pulse Ox 100% on 2 lpm NC; Pain 6/10; ed1 18:10 BP 122 / 54; Pulse 74; Resp 21; Temp 97.5(O); Pulse Ox 100% on 2 lpm NC; Pain 6/10; ed1 19:44 BP 133 / 70; Pulse 78; Resp 18; Temp 97.6(O); Pulse Ox 100% on 2 lpm NC; Pain 0/10; ed1 12:17 Body Mass Index 16.16 (36.29 kg, 149.86 cm) aj1 MDM: 18:59 Patient medically screened. kdr 22:31 Data reviewed: vital signs, nurses notes, lab test result(s), EKG, radiologic studies. kdr Counseling: I had a detailed discussion with the patient and/or guardian regarding: the historical points, exam findings, and any diagnostic results supporting the discharge/admit diagnosis, lab results, radiology results, the need for further work-up and treatment in the hospital. Physician consultation: Vernon Pelaez MD regarding Need for dialysis tomorrow - he will ensure that this gets done. ED course: The patient continued to have pain despite pain medication - will admit for pain control and moderate CHF. 09/04 12:59 Order name: Basic Metabolic Panel [facility] 09/04 12:59 Order name: CBC with Diff kdr 09/04 12:59 Order name: LFT's kdr 09/04 12:59 Order name: Magnesium; Complete Time: 15:31 [facility] 09/04 12:59 Order name: NT PRO-BNP; Complete Time: 15:31 [facility] 09/04 12:59 Order name: PT-INR; Complete Time: 15:31 [facility] 09/04 12:59 Order name: Troponin (emerg Dept Use Only); Complete Time: 15:31 [facility] 09/04 12:59 Order name: XRAY Chest (1 view); Complete Time: 15:31 [facility] 09/04 13:01 Order name: Basic Metabolic Panel; Complete Time: 15:31 EDID 09/04 13:01 Order name: CBC with Automated Diff; Complete Time: 17:22 EDID 09/04 13:01 Order name: Liver (Hepatic) Function; Complete Time: 15:31 EDID 09/04 15:48 Order name: Spine Thoracic Ap/Lat XRAY; Complete Time: 17:39 [facility] 09/04 15:48 Order name: Manual Differential; Complete Time: 17:22 EDID 09/04 12:59 Order name: EKG; Complete Time: 13:01 [facility] 09/04 12:59 Order name: Cardiac monitoring; Complete Time: 13:22 [facility] 09/04 12:59 Order name: EKG - Nurse/Tech; Complete Time: 13:22 [facility] 09/04 12:59 Order name: IV Saline Lock; Complete Time: 19:10 [facility] 09/04 12:59 Order name: Labs collected and sent; Complete Time: 13:41 [facility] 09/04 12:59 Order name: O2 Per Protocol; Complete Time: 13:22 [facility] 09/04 12:59 Order name: O2 Sat Monitoring; Complete Time: 13:22 kdr 09/04 14:27 Order name: Labs - recollect needed; Complete Time: 14:44 eb 09/04 15:48 Order name: Lumbar Spine (3 Views) XRAY; Complete Time: 17:39 kdr Administered Medications: 18:39 Drug: morphine 2 mg Route: IVP; Site: left jugular; hb 20:08 Follow up: Response: No adverse reaction; Nausea is decreased ed1 20:08 Follow up: Response: No adverse reaction; Pain is decreased ed1 18:39 Drug: Zofran 2 mg Route: IVP; Site: left jugular; hb 20:09 Follow up: Response: No adverse reaction ed1 Disposition: 09/04/18 18:59 Hospitalization ordered by Dilan Kelly for Observation. Preliminary diagnosis is CHF, Mid thorax pain secondary to mid T-Spine compression fracture. - Bed requested for Telemetry/MedSurg (observation). - Status is Observation. ed1 - Condition is Fair. - Problem is new. - Symptoms have improved. UTI on Admission? No Signatures: Dispatcher [employer] EDID Arlette Goldsmith RN RN aj1 Med Cao MD MD kdr Martinez, Eric em1 Tamar Boyd LVN TECHNICIAN [employer] ed1 Gloria Moore RN RN Helga Gold Corrections: (The following items were deleted from the chart) 13:12 12:20 Chest Pa And Lat (2 Views)+RAD.RAD.BRZ ordered. [facility] EDID 19:21 18:59 Hospitalization Ordered by Dilan Kelly MD for Observation. Preliminary diagnosis em1 is CHF, Mid thorax pain secondary to mid T-Spine compression fracture. Bed requested for Telemetry/MedSurg (observation). Status is Observation. Condition is Fair. Problem is new. Symptoms have improved. UTI on Admission? No. kdr 20:09 19:21 09/04/2018 18:59 Hospitalization Ordered by Dilan Kelly MD for Observation. ed1 Preliminary diagnosis is CHF, Mid thorax pain secondary to mid T-Spine compression fracture. Bed requested for Telemetry/MedSurg (observation). Status is Observation. Condition is Fair. Problem is new. Symptoms have improved. UTI on Admission? No. em1
--- NOTE | 2018-09-04 19:00 | ER ---
Nurse's Notes [facility] Name: Stefany Sauer Age: 83 yrs Sex: Female : 1935 Arrival Date: 09/04/2018 Time: 12:07 Bed 25 Private MD: Dilan Kelly Diagnosis: CHF, Mid thorax pain secondary to mid T-Spine compression fracture Presentation: 09/04 12:09 Presenting complaint: Child states: "Last night she started saying that it hurts her aj1 when she breaths. She also said her back hurts, but we found out recently that she has a fracture on her spine, and a tear on her rotator cuff, but we aren't doing anything about it because of her age. Its her rib cage and her shoulder blades in her back that are hurting her" Denies chest pain, states it hurts in her back when she takes a deep breath. Reports that patient has not fallen since May. Denies cough, congestion. Reports feeling short of breath intermittently. Transition of care: patient was not received from another setting of care. Onset of symptoms was September 03, 2018. Risk Assessment: Do you want to hurt yourself or someone else? Patient reports no desire to harm self or others. Initial Sepsis Screen: Does the patient meet any 2 criteria? No. Patient's initial sepsis screen is negative. Does the patient have a suspected source of infection? No. Patient's initial sepsis screen is negative. Care prior to arrival: None. 12:09 Method Of Arrival: Wheelchair aj1 12:09 Acuity: SHEA 3 aj1 Triage Assessment: 12:17 General: Appears in no apparent distress. uncomfortable, Behavior is calm, cooperative, aj1 appropriate for age. Pain: Complains of pain in left scapular area, right scapular area, left subscapular area and right subscapular area Pain currently is 8 out of 10 on a pain scale. Neuro: Level of Consciousness is awake, alert, obeys commands. Cardiovascular: Patient's skin is warm and dry. Respiratory: Reports shortness of breath that come and goes Airway is patent Respiratory effort is even, unlabored, Respiratory pattern is regular, symmetrical, Onset: The symptoms/episode began/occurred yesterday, the patient has mild shortness of breath. Historical: - Allergies: 12:17 Betapace; aj1 12:17 Demerol; aj1 12:17 Ferrous Gluconate; aj1 12:17 Sulfa (Sulfonamide Antibiotics); aj1 12:17 Trazodone; aj1 12:17 Zutripro; aj1 - PMHx: 12:17 CHF; Cirrhosis; CVA; Dialysis; GI Bleed; Gout; Hyperlipidemia; Hypertension; aj1 Hypothyroidism; seasonal allergies; - Immunization history:: Adult Immunizations up to date. - Social history:: Smoking status: Patient/guardian denies using tobacco. - Ebola Screening: : Patient negative for fever greater than or equal to 101.5 degrees Fahrenheit, and additional compatible Ebola Virus Disease symptoms Patient denies exposure to infectious person Patient denies travel to an Ebola-affected area in the 21 days before illness onset No symptoms or risks identified at this time. Screenin:18 Abuse screen: Denies threats or abuse. Denies injuries from another. Nutritional ed1 screening: No deficits noted. Tuberculosis screening: No symptoms or risk factors identified. Fall Risk Fall in past 12 months (25 points). Secondary diagnosis (15 points) impaired mobility, CVA, No IV (0 pts). Ambulatory Aid- None/Bed Rest/Nurse Assist (0 pts). Gait- Weak (10 pts.). Mental Status- Oriented to own ability (0 pts). Total Alva Fall Scale indicates High Risk Score (45 or more points). Fall prevention measures have been instituted. Side Rails Up X 2 Placed Close to Nursing Station Frequent Obs/Assessments Occuring Family Present and informed to notify staff if the need to leave the bedside As available patient and family educated on Fall Prevention Program and Strategies. Assessment: 13:18 General: Appears uncomfortable, Behavior is calm, cooperative. Pain: Complains of pain ed1 in back and chest Pain does not radiate. Pain currently is 8 out of 10 on a pain scale. Quality of pain is described as aching, Pain began 2-3 days ago. Is continuous, Aggravated by increased activity, repositioning, weight bearing. Neuro: Level of Consciousness is awake, alert, obeys commands, Oriented to person, place, time, situation. Cardiovascular: Reports chest pain, when breathing Heart tones S1 S2 absent Rhythm is regular Dialysis shunt: in the anterior aspect of right upper chest. Respiratory: Airway is patent Trachea midline Respiratory effort is even, unlabored, Respiratory pattern is regular, symmetrical, Breath sounds are clear bilaterally. Denies cough, shortness of breath. GI: Abdomen is non-distended, Bowel sounds present X 4 quads. Abd is soft and non tender X 4 quads. Patient currently denies diarrhea, nausea, vomiting. : No signs and/or symptoms were reported regarding the genitourinary system. EENT: No signs and/or symptoms were reported regarding the EENT system. Derm: Skin is fragile, is thin, with poor turgor Skin is dry, Skin is normal, Skin temperature is warm. Musculoskeletal: Circulation, motion, and sensation intact. Capillary refill < 3 seconds, in bilateral fingers. Range of motion: limited in all extremities. 13:28 Reassessment: I agree with previous assessment. hb 13:56 Reassessment: Patient appears in no apparent distress at this time. No changes from ed1 previously documented assessment. Patient and/or family updated on plan of care and expected duration. Pain level reassessed. Patient is alert, oriented x 3, equal unlabored respirations, skin warm/dry/pink. Patient states symptoms have not improved. 14:47 Reassessment: Patient appears in no apparent distress at this time. No changes from ed1 previously documented assessment. Patient and/or family updated on plan of care and expected duration. Pain level reassessed. Patient is alert, oriented x 3, equal unlabored respirations, skin warm/dry/pink. Patient states symptoms have not improved. 15:37 Reassessment: Patient appears in no apparent distress at this time. No changes from ed1 previously documented assessment. Patient and/or family updated on plan of care and expected duration. Pain level reassessed. Patient is alert, oriented x 3, equal unlabored respirations, skin warm/dry/pink. Patient states symptoms have not improved. 16:14 Reassessment: Patient appears in no apparent distress at this time. No changes from ed1 previously documented assessment. Patient and/or family updated on plan of care and expected duration. Pain level reassessed. Patient is alert, oriented x 3, equal unlabored respirations, skin warm/dry/pink. Patient states symptoms have not improved. 17:17 Reassessment: Patient appears in no apparent distress at this time. No changes from ed1 previously documented assessment. Patient and/or family updated on plan of care and expected duration. Pain level reassessed. Patient is alert, oriented x 3, equal unlabored respirations, skin warm/dry/pink. Patient states symptoms have not improved. 18:10 Reassessment: Patient appears in no apparent distress at this time. No changes from ed1 previously documented assessment. Patient and/or family updated on plan of care and expected duration. Pain level reassessed. Patient is alert, oriented x 3, equal unlabored respirations, skin warm/dry/pink. Patient states symptoms have not improved. 19:44 Reassessment: Patient appears in no apparent distress at this time. Patient and/or ed1 family updated on plan of care and expected duration. Pain level reassessed. Patient is alert, oriented x 3, equal unlabored respirations, skin warm/dry/pink. Patient denies pain at this time. Patient states feeling better. Patient states symptoms have improved. Vital Signs: 12:17 BP 114 / 55; Pulse 82; Resp 18; Temp 97.3; Pulse Ox 93% on R/A; Weight 36.29 kg (R); aj1 Height 4 ft. 11 in. (149.86 cm) (R); Pain 8/10; 13:56 BP 123 / 68; Pulse 79; Resp 15; Temp 97.3(O); Pulse Ox 100% on 2 lpm NC; Pain 8/10; ed1 14:47 BP 124 / 65; Pulse 77; Resp 23; Pulse Ox 100% on 2 lpm NC; Pain 7/10; ed1 15:37 BP 132 / 69; Pulse 83; Resp 19; Pulse Ox 100% on 2 lpm NC; Pain 6/10; ed1 17:17 BP 128 / 62; Pulse 73; Resp 16; Pulse Ox 100% on 2 lpm NC; Pain 6/10; ed1 18:10 BP 122 / 54; Pulse 74; Resp 21; Temp 97.5(O); Pulse Ox 100% on 2 lpm NC; Pain 6/10; ed1 19:44 BP 133 / 70; Pulse 78; Resp 18; Temp 97.6(O); Pulse Ox 100% on 2 lpm NC; Pain 0/10; ed1 12:17 Body Mass Index 16.16 (36.29 kg, 149.86 cm) [facility] ED Course: 12:07 Patient arrived in ED. sb2 12:07 Dilan Kelly MD is Private Physician. sb2 12:16 Triage completed. aj1 12:17 Arm band placed on. aj1 12:59 Med Cao MD is Attending Physician. kdr 13:05 Pulse ox on. NIBP on. jp3 13:09 Bed in low position. Call light in reach. Side rails up X 1. Warm blanket given. Pillow jp3 given. 13:17 Tamar Boyd LVN is Primary Nurse. ed1 13:53 X-ray completed. Portable x-ray completed in exam room. Patient tolerated procedure ls3 well. 14:07 XRAY Chest (1 view) In Process Unspecified. EDMS 15:42 LFT's Sent. ed1 15:42 CBC with Diff Sent. ed1 15:42 Basic Metabolic Panel Sent. ed1 16:14 Patient moved to radiology via stretcher. ed1 16:38 Spine Thoracic Ap/Lat XRAY In Process Unspecified. EDMS 16:38 Lumbar Spine (3 Views) XRAY In Process Unspecified. EDMS 18:30 Inserted saline lock: 20 gauge in left EJ, using aseptic technique. ,using aseptic ed1 technique. Inserted by DAMEON Simmons. 18:58 Dilan Kelly MD is Hospitalizing Provider. kdr 20:06 No provider procedures requiring assistance completed. Patient admitted, IV remains in ed1 place. intact, No redness/swelling at site. Administered Medications: 18:39 Drug: morphine 2 mg Route: IVP; Site: left jugular; hb 20:08 Follow up: Response: No adverse reaction; Nausea is decreased ed1 20:08 Follow up: Response: No adverse reaction; Pain is decreased ed1 18:39 Drug: Zofran 2 mg Route: IVP; Site: left jugular; hb 20:09 Follow up: Response: No adverse reaction ed1 Outcome: 18:59 Decision to Hospitalize by Provider. kdr 20:06 Admitted to Med/surg accompanied by tech, family with patient, via stretcher, room 232, ed1 Report called to JONATHAN Davis 20:06 Condition: stable 20:06 Discharge instructions given to patient, family, Instructed on the need for admit, Demonstrated understanding of instructions. 20:09 Patient left the ED. ed1 Signatures: Dispatcher [employer] Arlette Nava RN RN aj1 Med Cao MD MD kdr Riggs, Tamar, PACKAGE DYEING MACHINE OPERATOR PACKAGE DYEING MACHINE OPERATOR ed1 Gloria Moore, RN RN Brianne Diaz sb2 Rebel Han jp3 Aleah Perez ls3 Corrections: (The following items were deleted from the chart) 18:11 13:56 BP 123 / 68; Pulse 79bpm; Resp 15bpm; Pulse Ox 100% RA; Temp 97.3F Oral; Pain ed1 8/10; ed1 18:11 14:47 BP 124 / 65; Pulse 77bpm; Resp 23bpm; Pulse Ox 100% RA; Pain 7/10; ed1 ed1 18:11 15:37 BP 132 / 69; Pulse 83bpm; Resp 19bpm; Pulse Ox 100% RA; Pain 6/10; ed1 ed1 18:11 17:17 BP 128 / 62; Pulse 73bpm; Resp 16bpm; Pulse Ox 100% RA; Pain 6/10; ed1 ed1 19:59 19:44 BP 94 / 74; Pulse 78bpm; Resp 18bpm; Pulse Ox 100% 2 lpm Nasal Cannula; Temp ed1 97.6F Oral; Pain 0/10; ed1
[2018-09-04] MEDS ORDERED: MORPHINE 2 MG/ML SYR IV PRN (19:02)
[2018-09-04] MEDS ORDERED: ACETAMINOPHEN 500 MG TAB PO PRN (19:02)
[2018-09-04] MEDS ORDERED: ONDANSETRON 4 MG/2 ML VIAL IV PRN (19:02)
[2018-09-05 02:26] VITALS: BMI 16.1
--- NOTE | 2018-09-05 05:13 | HP ---
Date of Admission: 09/04/2018 Chief Complaint: Back pain. History Of Present Illness: This is an 83-year-old female patient, who came into emergency room with increasing back pain for last 1 week. Denies any recent fall or injury. She had a fall few months ago. At that time, she had compression fracture of lumbar spine, which we believe was the result of that fall, but this time she has not had any fall and started to have this spontaneous back pain in t he interscapular region. Pain is located over the right lower scapular region and interscapular sonido on. The pain is constant. She takes her pain medication, tramadol, and Tylenol at home, but it is n ot what is helping her at all, so her family brought her to emergency room today after she was saraha kraig. She was admitted to the hospital under my service. I saw her in the emergency room. The patie nt was admitted for pain control and some of her blood work was abnormal in the emergency room, which I believe is not unusual for renal failure. The patient is a dialysis dependent. Medications: Medications list reviewed. Review of Systems: Musculoskeletal: As mentioned above. All other systems reviewed and negative. Allergies: ALLERGIES TO SOTALOL, SULFA, TRAZODONE, IRON, AND ZUTRIPRO. Family History: Mother had Alzheimer's and breast cancer. Brother with hypertension. Father with m yocardial infarction. Social History: Negative for smoking, alcohol use. Past Surgical History: Appendectomy, umbilical hernia repair, cataract surgery, dialysis graft place ment, surgery for bowel obstruction. Past Medical History: End-stage renal disease, on hemodialysis; thrombocytopenia; insomnia; osteoart hritis at multiple sites; anemia due to chronic kidney disease; anemia due to GI bleeding; pulmonary hypertension; osteoporosis; hyperlipidemia; gastroesophageal reflux disease; hypertension; gout; and hypothyroidism. Physical Examination: Vital Signs: When she first came into emergency room, temperature 97.3, pulse 82, respiratory rate 1 8, blood pressure 114/55. General: Awake, alert, oriented, not in distress. HEENT: Head atraumatic, normocephalic. Conjunctivae nonerythematous. Sclerae white. Mouth, no thr ush or edema noted. Ears/Nose, no mass, lesion, discharge noted. Neck: Supple. No JVD, lymph nodes, bruit, thyromegaly noted. Lungs: Bilateral lower lung rales, not in respiratory distress. Heart: Systolic murmur unchanged. Abdomen: Soft, bowel sounds normal. No guarding, rigidity, tenderness, mass, hepatosplenomegaly, dis tention, or bruit noted. Extremities: Leg edema, bilateral unchanged. Leg edema is grade 1. Skin: No rash, ulcer, cellulitis. Lymphatics: No lymph node enlargement in neck, supraclavicular, infraclavicular region. Neuro: No focal neurological deficit. Chest: Unremarkable. External Genitalia: Deferred. Rectal: Deferred. Laboratory Data: White count 10.8, hemoglobin 8, and platelets 78. Sodium 138, potassium 3.8, chlor augustine 103, bicarb 26, BUN 25, creatinine 3.10, glucose 121. Liver function tests unremarkable. ProBNP 12,195. Chest x-ray shows moderate CHF versus volume overload pattern. Lumbar spine x-ray, mild co mpression deformity of L4, unchanged from June 2018. Thoracic spine x-ray shows mild compression deformity involving midthoracic vertebral body, which has developed since June 2018. Impression: 1.Compression fracture of thoracic spine and lumbar spine. 2.End-stage renal disease. 3.Thrombocytopenia. 4.Anemia due to chronic kidney disease. 5.Pulmonary hypertension. 6.Gout. 7.Chronic steroid therapy. 8.Osteoarthritis, multiple sites. 9.Pulmonary hypertension. 10.Osteoporosis. 11.Hyperlipidemia. 12.Gastroesophageal reflux disease. 13.Hypothyroidism. Plan: 1.Admit the patient to hospital for further evaluation and management of this problem. The patient is appropriate for observation. We will go ahead and continue home medications per order. I have in formed the patient's family member to make sure to give her nighttime dose of her medication as they have it with her. We will consult her printer assistant for dialysis needs and I will see her tomorrow fo r followup. I did talk to patient's family member regarding future plan. The patient saw Dr. Pak yesterday for her compression fracture of lumbar spine and he informed both the patient and family t hat before he decides to plan any surgery, he will need to get clearance from all of her involved phy sicians. The patient in my opinion is at high risk from any surgical intervention and I have advised the patient's daughter that she should start approaching Dr. Antunez from Pulmonary, Dr. Davonte seaman Cardiology Service and Dr. Johnson from Nephrology Service, tried to give her preop clearance to as sess her risk. Family understands that with my opinion is that she is high risk and they understand that she might have to just go with the conservative treatment, which is pain medication and pain man agement. I have advised him that considering this second rib fracture, they will need to start seein g Pain Management Physician. Upon discharge summary to start calling for appointment names of local Pain Management physicians given to family. DIANA/KELI Voice ID: [id number]
[2018-09-05 06:03] LABS: Absolute Lymphocytes (CBC) 1.1 K/uL (0.7-4.9); Absolute Monocytes 0.5 K/uL (0.1-1.3); Absolute Neutrophil 5.9 K/uL (1.8-8.0); Basophils % 0.4 % (0-1.3); Eosinophils % 0.4 % (0-4.4); Hematocrit 20.8 % (36.0-45.0); Lymphocytes % 14.3 % (15.3-44.8); MPV 9.2 fL (7.6-11.3); Monocytes % 6.4 % (3.3-12.3); RBC Red Blood Cell Count 2.07 M/uL (3.86-4.86)
[2018-09-05 06:17] LABS: Potassium 3.8 mmol/L (3.5-5.1)
--- NOTE | 2018-09-05 07:01 | EKG ---
Test Date: 2018-09-04 Test Time: 13:16:08 Stock Worker: JUAN MANUEL MEASUREMENT RESULTS: Intervals: Rate: 83 NJ: 146 QRSD: 86 QT: 378 QTc: 444 [place]: P: 44 NJ: 146 QRS: -41 T: 90 INTERPRETIVE STATEMENTS: Sinus rhythm with premature atrial complexes Left axis deviation Nonspecific ST and T wave abnormality Abnormal ECG Compared to ECG 03/26/2018 16:20:24 Atrial premature complex(es) now present Left-axis deviation now present Sinus tachycardia no longer present Fusion complex(es) no longer present Possible ischemia no longer present ST (T wave) deviation still present Electronically Signed On 09-05-18 06:52:50 TREE CHIPPER by Myke Forde
[2018-09-05] MEDS ORDERED: EPOETIN ALFA 10,000 UNIT/ML VIAL SQ SCH (12:15)
[2018-09-05] MEDS ORDERED: NA CHLORIDE 0.9% 1,000 ML IV PRN (15:19)
[2018-09-05] MEDS ORDERED: ALBUMIN HUMAN 25% 50 ML IV SCH (16:00)
[2018-09-05] MEDS ORDERED: NA CHLORIDE 0.9% 250 ML ONE (16:06)
--- NOTE | 2018-09-05 16:49 | CON ---
Date of Consultation: 09/05/2018 Reason For Consultation: End-stage renal disease, on dialysis. History Of Present Illness: Ms. Sauer is an 83-year-old female with past medical history significant for ESRD on dialysis, severe pulmonary hypertension, history of GI bleed secondary to vascular malfo rmations, presented to [facility] yesterday with increasing back pain for 1 week prior to ad mission. The patient had no history of fall or injury reported recently; however, she was noted to h ave compression fracture of her lumbar spine and she was admitted for pain management as well as eval uation of that further. She states that she is doing better today and denies any pain in her back at this time. Her hemoglobin has dropped and Dr. Kelly has ordered 1 unit of PRBC for transfusion with dialysis. Past Medical History: Significant for history of severe pulmonary hypertension, coronary artery dise ase, chronic thrombocytopenia, severe bone and mineral disease secondary to ESRD with severe osteoart hritis at multiple areas, anemia due to CKD as well as history of GI bleeding, GERD, hypertension, an d hypothyroidism. Social History: Lives at home with her family. No history of smoking or alcohol use reported. Past Surgical History: Significant for history of AV graft placement, which is currently not being u sed, history of surgery for bowel obstruction, cataract surgery, umbilical hernia repair and appendec jean. Review of Systems: Positive for pain in the back, weakness, and lethargy. Denies any shortness of breath or chest pain at this time. All other review of systems are negative. Allergies: HAVE BEEN REVIEWED. Family History: Noncontributory at this time. Physical Examination: Vital Signs: Temperature of 98.7, pulse rate of 74, respiratory rate of 18, and blood pressure of 11 8/44. General: She appears weak and cachectic. HEENT: Atraumatic head. Lungs: Auscultation of lungs revealed bilateral equal air entry with diminished breath sounds at bas es. Heart: Auscultation of heart revealed regular rate and rhythm. Abdomen: Soft. Extremities: Without any evidence of edema. Laboratory Data: Showing BMP consistent with ESRD. CBC showing hemoglobin dropping to 6.8, hematocr it 20.8, and platelet count of 107. Current Medications: Morphine 2 mg IV q.4 h p.r.n. for pain and Tylenol p.r.n. for pain. Impression: 1.End-stage renal disease, on dialysis. 2.Lumbar compression fracture secondary to possibly from severe bone and mineral disease secondary t o underlying end-stage renal disease. 3.Anemia with drop in hemoglobin and hematocrit. 4.Severe underlying debility and weakness. 5.Severe underlying heart disease with pulmonary hypertension with cor pulmonale. Plan: 1.The patient will get dialysis today per her regular schedule with a 2K 2.5 calcium bath and ultraf iltration of about 2-3 L as tolerated with 1 unit of PRBC for transfusion. We will continue to monit or her closely. 2.For pain, for lumbar compression fracture, she is getting morphine. Would use morphine very cauti ously in this elderly lady who has multiple comorbidities as it can lead to severe hypotension, espec ially prior to dialysis. 3.Hypertension, stable. 4.Anemia with drop in hemoglobin and hematocrit. We will go ahead and give her a unit of blood and continue with Epogen with dialysis and monitor her anemia closely. BRANDT/KELI Voice ID: [id number] Report ID: [id number]
[2018-09-05 17:27] VITALS: BP 102/59; TEMP 98.1
[2018-09-05 18:34] VITALS: O2SAT 96
[2018-09-05 18:44] LABS: Hematocrit 29.7 % (36.0-45.0)
[2018-09-05] MEDS ORDERED: NEPRO SHAKE 237 ML CAN PO SCH (21:00)
--- NOTE | 2018-09-06 13:50 | DS ---
Date of Discharge: 09/05/2018 Disposition: Discharged to go home. Physical Examination: HEENT: Unremarkable. Lungs: Clear to auscultation except minimum basal rales, not in any respiratory distress. Heart: Sounds normal. Abdomen: Soft. Bowel sounds normal. No guarding, rigidity, tenderness, or distention. Extremities: Trace leg edema. Laboratory Data: Yesterday, hemoglobin 8. This morning, hemoglobin was 6.8 and after 1 unit of bloo d transfusion during dialysis today. Post transfusion hemoglobin was 9.7. Platelet count 78 yesterd ay, today 107. Chemistry unremarkable today except BUN 32, creatinine 3.70, glucose 73. Instructions/medication: 1.Continue all prior home medications and this morning when I saw the patient, I instructed the bill ent's daughter that I would like for patient to try using Lidoderm patch to her midback and lower dio k every day, and to keep it on for 12 hours and then take it off. 2.Follow up with Pain Management physician, and I have given names of 3 different pain management ph ysicians here locally in the area, and family will schedule appointment. Hospital Course: An 83-year-old female patient admitted to the hospital after she came into emergenc y room with complaints of back pain. Please see dictated H and P for more information. Further eval uation revealed presence of compression fracture of thoracic spine, and this was rather a new fractur es without any associated fall. About 3 months ago, she was diagnosed as having fracture of lumbar s pine and that was the result of fall. The patient did see Dr. Pak, and he suggested for patient t o get clearance from all her involved physicians before he can plan for surgery. In my opinion, the patient is at high risk from any kind of surgical intervention like kyphoplasty that Dr. Pak wants to consider and the patient's family realizes that. Other option is conservative treatment with kirt n management physician and family agrees with that kind of treatment plan, so they will go ahead and initiate that appointment process. The patient was admitted to the hospital for pain control. Today a dialysis was provided under a landscape photographer and 1 unit of PRBC was transfused during that time. Ov erall, condition was stable for discharge. The patient's daughter has Lidoderm patch at home, so she will try to use that for her. Final Diagnoses: 1.Compression fracture of thoracic spine and lumbar spine. 2.End-stage renal disease. 3.Anemia due to chronic kidney disease. 4.Thrombocytopenia. 5.Pulmonary hypertension. 6.Gout. 7.Chronic steroid therapy. 8.Osteoarthritis, multiple sites. 9.Pulmonary hypertension. 10.Osteoporosis. 11.Hyperlipidemia. 12.Gastroesophageal reflux disease. 13.Hypothyroidism. DIANA/MODL Voice ID: [id number] Report ID: [id number]
== END 2018-09-05 21:07 | disposition home or self-care (01) ==
LOC: ER 12:02 → ERHOLD 18:25 → 2ND 20:00
PROVIDERS: ADMIT Internal Medicine; ATTEND Internal Medicine
DX: M48.55XA Collapsed vertebra, not elsewhere classified, thoracolumbar region, initial encounter for fracture (principal); I12.0 Hypertensive chronic kidney disease with stage 5 chronic kidney disease or end stage renal disease; N18.6 End stage renal disease; Z99.2 Dependence on renal dialysis; I25.10 Atherosclerotic heart disease of native coronary artery without angina pectoris; E03.9 Hypothyroidism, unspecified; M19.90 Unspecified osteoarthritis, unspecified site; D63.1 Anemia in chronic kidney disease; I27.29 Other secondary pulmonary hypertension; D69.6 Thrombocytopenia, unspecified; M10.9 Gout, unspecified; Z79.52 Long term (current) use of systemic steroids; M81.0 Age-related osteoporosis without current pathological fracture; K21.9 Gastro-esophageal reflux disease without esophagitis
CPT/HCPCS: 36415; 36430; 71045; 72070; 72100; 80048 ×2; 80076; 83735; 83880; 84484; 85014; 85018; 85025 ×2; 85610; 86850; 86900; 86901; 90935; 93005; 96374; 96375; 99285; J1644; J2270 ×2; J2405; P9016; Q4081

== ENCOUNTER 2018-10-04 13:21 | Emergency (ER) | payer OTHER ==
--- OUTSIDE RECORDS SUMMARY | 2018-10-04 13:24 | XMS REPORT ---
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
--- OUTSIDE RECORDS SUMMARY | 2018-10-04 13:24 | XMS REPORT ---
:1935 Author Organization e[employer] Care Team Providers Name Role Phone Jermaine Isidro Provider Role Unavailable Allergies, Adverse Reactions, Alerts Substance Reaction Event Type N.K.D.A. 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 Assessment Rotator cuff arthropathy of right M12.811 Active shoulder Medications Medication Code Code Instructions Start End Status Dosage System Date Date Dicyclomine HCl [facility] 56405507865 10 MG Oral Active TAKE ONE CAPSULE BY MOUTH TWICE A DAY NEEDED Omeprazole [facility] 27818428967 40 MG Oral Active TAKE 1 CAPSULE BY MOUTH EVERY DAY Calcium Acetate [facility] 89531913513 667 MG Oral Active TAKE BY (Phos Binder) MOUTH 2 CAPSULES 3 TIMES A DAY Levothyroxine [facility] 60619752873 125 MCG Oral Active TAKE 1 Sodium TABLET EVERY MORNING Pravastatin [facility] 91522632758 40 MG Oral Active TAKE 1 Sodium TABLET BY ORAL ROUTE EVERY EVENING Amlodipine [facility] 83030891639 5 MG Oral Active TAKE 1 Besylate TABLET BY MOUTH EVERY DAY CVS D3 [facility] 06356210955 5000 UNIT Oral Active TAKE 1 CAPSULE EVERY DAY Poppy-Taisha [facility] 17506658254 - Oral Active TAKE 1 TABLET BY MOUTH DAILY Allopurinol [facility] 90772468607 100 MG Oral Active TAKE 1 TABLET BY MOUTH EVERY DAY Vitamin D3 [facility] 35394390997 5000 UNIT Oral Active TAKE 1 CAPSULE EVERY DAY Diclofenac ND 77817152923 1 % Transdermal Active APPLY 2 Sodium GRAMS 3 TIMES A DAY FOR ARTHRITIS PAIN NEEDED PredniSONE ND 49029473489 10 MG Oral Active TAKE 1 TABLET BY MOUTH EVERY DAY WITH FOOD Results No Known Results Summary Purpose eClinicalWorks Submission
--- NOTE | 2018-10-04 15:01 | RAD REPORT ---
EXAM DESCRIPTION: Sohail Single View10/04/2018 2:47 pm CLINICAL HISTORY: Chest pain COMPARISON: August 2018 FINDINGS: Minimal interstitial pulmonary edema is suspected. The heart is mildly to moderately enlarged. Central venous catheter remains in place
[2018-10-04] MEDS ORDERED: HEPARIN 5000 UNIT/ML 1 ML VIAL ONE (16:13)
[2018-10-04 17:03] LABS: Protime INR 1.03
[2018-10-04 17:25] LABS: Albumin 2.8 g/dL (3.4-5.0); Bilirubin Direct 0.3 mg/dL (0-0.2); Bilirubin Total 0.7 mg/dL (0.2-1.0); Magnesium 2.1 mg/dL (1.8-2.4); Protein, Total 5.4 g/dL (6.4-8.2); Troponin (Emerg Dept Use Only) 0.09 ng/mL (0.0-0.045)
[2018-10-04 17:26] LABS: Potassium 2.9 mmol/L (3.5-5.1)
[2018-10-04] MEDS ORDERED: GLUCAGON 1 MG/VIAL ONE (17:57)
--- NOTE | 2018-10-04 17:59 | EDPHYS ---
Physician Documentation [facility] Name: Stefany Sauer Age: 83 yrs Sex: Female : 1935 Arrival Date: 10/04/2018 Time: 13:39 Bed 14 Private MD: ED Physician Paul Grier HPI: 10/04 13:42 This 83 yrs old Female presents to ER via Unassigned with complaints of cp difficulty swallowing. 13:42 The patient presents with dysphagia, of liquids. Onset: The symptoms/episode cp began/occurred yesterday. Associated signs and symptoms: Pertinent negatives chest pain, cough, fever, sore throat. Historical: - Allergies: 13:47 Betapace; aj1 13:47 Demerol; aj1 13:47 Ferrous Gluconate; aj1 13:47 Sulfa (Sulfonamide Antibiotics); aj1 13:47 Trazodone; aj1 13:47 Zutripro; aj1 - Home Meds: 13:47 allopurinol 100 mg Oral tab 1 tab once daily [Active]; amlodipine 5 mg tab 1 tab once aj1 daily [Active]; calcium acetate 667 mg Oral cap 1 caps with meals [Active]; Dialyvite 800 with Zinc 15 0.8-15 mg Oral tab daily [Active]; levothyroxine 125 mcg tab 1 tab once daily [Active]; omeprazole 40 mg Oral cpDR 1 cap once daily [Active]; pravastatin 40 mg Oral tab 1 tab once daily [Active]; prednisone 10 mg Oral tab once daily [Active]; Poppy-Taisha 0.8 mg Oral tab [Active]; tadalafil Oral 1 tab once daily [Active]; Vitamin D3 5,000 unit Oral tab daily [Active]; - PMHx: 13:47 CHF; Cirrhosis; CVA; Dialysis; GI Bleed; Gout; Hyperlipidemia; Hypertension; aj1 Hypothyroidism; seasonal allergies; ESRD; - Immunization history:: Flu vaccine status is unknown. - Social history:: Smoking status: Patient/guardian denies using tobacco. - Ebola Screening: : Patient denies travel to an Ebola-affected area in the 21 days before illness onset. ROS: 13:44 Eyes: Negative for injury, pain, redness, and discharge. cp 13:44 Constitutional: Negative for body aches, chills, fever, poor PO intake. 13:44 ENT: Positive for difficulty swallowing, Negative for drainage from ear(s), ear pain, sore throat, difficulty handling secretions. 13:44 Cardiovascular: Negative for chest pain, edema, palpitations. 13:44 Respiratory: Negative for cough, shortness of breath, wheezing. 13:44 Abdomen/GI: Negative for abdominal pain, vomiting, diarrhea, constipation. 13:44 Skin: Negative for cellulitis, rash. 13:44 Neuro: Negative for altered mental status, headache, weakness. 13:44 All other systems are negative. Exam: 13:50 Constitutional: The patient appears in no acute distress, alert, awake, non-toxic, well cp developed, frail. 13:50 Head/Face: Normocephalic, atraumatic. cp 13:50 Eyes: Periorbital structures: appear normal, Conjunctiva: normal, no exudate, no injection, Sclera: no appreciated abnormality, Lids and lashes: appear normal, bilaterally. 13:50 ENT: External ear(s): are unremarkable, Nose: is normal, Mouth: Lips: dry, Oral mucosa: moist, Posterior pharynx: Airway: no evidence of obstruction, patent. 13:50 Chest/axilla: Inspection: right upper chest port, Palpation: crepitus, is not appreciated, tenderness, is not appreciated. 13:50 Cardiovascular: Rate: normal, Rhythm: regular, JVD: is not appreciated. 13:50 Respiratory: the patient does not display signs of respiratory distress, Respirations: normal, no use of accessory muscles, no retractions, no splinting, no tachypnea, labored breathing, is not present, Breath sounds: decreased breath sounds, that are moderate, are located in both bases, wheezing: is not appreciated. 13:50 Abdomen/GI: Inspection: abdomen appears normal, Bowel sounds: active, all quadrants, Palpation: soft, in all quadrants, mild abdominal tenderness, in the right lower quadrant and left lower quadrant, rebound tenderness, is not appreciated, involuntary guarding, is not appreciated. 13:50 Back: pain, is absent. 13:50 Skin: cellulitis, is not appreciated, no rash present. 13:50 Neuro: Orientation: no acute changes, per family, Mentation: no acute changes, per family. 14:18 ECG was reviewed by the Attending Physician. cp Vital Signs: 13:47 BP 114 / 63; Pulse 79; Resp 14; Temp 98.5; Pulse Ox 100% on R/A; Pain 6/10; aj1 14:45 BP 114 / 68; Pulse 72; Resp 18; Pulse Ox 100% on R/A; aj1 15:45 BP 117 / 62; Pulse 72; Resp 18; Pulse Ox 99% on R/A; aj1 16:45 BP 118 / 60; Pulse 68; Resp 18; Pulse Ox 100% ; aj1 17:45 BP 99 / 44; Pulse 68; Resp 18; Pulse Ox 99% ; aj1 18:45 BP 109 / 65; Pulse 62; Resp 18; Pulse Ox 97% on R/A; aj1 19:37 BP 104 / 54; Pulse 68; Resp 18; Pulse Ox 100% on R/A; aj1 20:45 BP 103 / 73; Pulse 86; Resp 23 S; Temp 98.7(O); Pulse Ox 98% on R/A; cc3 21:00 BP 105 / 73; Pulse 88; Resp 20 S; Pulse Ox 98% on R/A; cc3 MDM: 13:42 Patient medically screened. cp 15:03 Physician consultation: Prasanna Clarke MD was called at 15:03, regarding consult, cp patient's condition, will not be available for consult. 18:00 Data reviewed: vital signs, nurses notes, lab test result(s), EKG, radiologic studies, cp plain films. 10/04 13:41 Order name: Basic Metabolic Panel; Complete Time: 17:32 cp 10/04 17:32 Interpretation: Normal except: K 2.9; GLUC 72; CRE 3.45; GFR 13. cp 10/04 13:41 Order name: CBC with Diff; Complete Time: 19:58 cp 10/04 18:24 Interpretation: Normal except: MCV 100.4; MCHC 30.9; PLT 125; RDW 21.7; MALLIKA% 84.4; LYM% cp 8.5. 10/04 13:41 Order name: LFT's; Complete Time: 17:32 cp 10/04 20:00 Interpretation: Normal except: ALK 136; BILID 0.3; TP 5.4; ALB 2.8. cp 10/04 13:41 Order name: Magnesium; Complete Time: 17:32 cp 10/04 13:41 Order name: NT PRO-BNP; Complete Time: 17:32 10/04 18:24 Interpretation: Abnormal: NT PRO-BNP 81324. 10/04 13:41 Order name: PT-INR; Complete Time: 17:05 10/04 17:05 Interpretation: Reviewed. 10/04 13:41 Order name: Troponin (emerg Dept Use Only); Complete Time: 17:32 10/04 18:24 Interpretation: Abnormal: TROPED 0.09. 10/04 13:41 Order name: XRAY Chest (1 view) 10/04 15:01 Order name: RAD; Complete Time: 16:43 EDMS 10/04 18:23 Order name: CBC Smear Scan; Complete Time: 19:58 EDMS 10/04 18:30 Order name: CT Chest Abdomen Pelvis W/O Contrast: no oral contrast; Complete Time: 19:58 10/04 13:41 Order name: EKG; Complete Time: 14:05 10/04 13:41 Order name: Cardiac monitoring; Complete Time: 13:51 10/04 13:41 Order name: EKG - Nurse/Tech; Complete Time: 14:42 10/04 13:41 Order name: Labs collected and sent; Complete Time: 18:27 10/04 13:41 Order name: O2 Per Protocol; Complete Time: 13:51 10/04 13:41 Order name: O2 Sat Monitoring; Complete Time: 13:51 cp EC:18 Rate is 74 beats/min. Rhythm is regular. VA interval is normal. QRS interval is normal. cp QT interval is normal. Interpreted by me. Reviewed by me. Administered Medications: 17:33 CANCELLED (Physician Discretion): Potassium Chloride 20 mEq IV at calculated rate once; cp administer over 1-2 hours 18:20 Drug: Glucagon 1 mg {Note: given by DAMEON Lucas to dialysis catheter to chest .} aa5 Route: IVP; Site: Other; 19:28 Follow up: Response: No adverse reaction aj1 18:21 Drug: Potassium Chloride 10 mEq {Note: given by DAMEON Lucas to dialysis catheter to aa5 chest .} Route: IV; Rate: calculated rate; Site: Other; 19:30 Follow up: Response: No adverse reaction; IV Status: Completed infusion; IV Intake: cc3 100ml 18:38 Drug: fentaNYL (PF) 25 mcg Route: IM; Site: right deltoid; aj1 19:29 Follow up: Response: No adverse reaction aj1 19:30 Drug: NS 0.9% 1000 ml {Note: dialysis catheter to right upper chest.} Route: IV; Rate: cc3 35 ml/hr; Site: Other; 20:00 Follow up: IV Status: Infusion continued upon transfer cc3 20:10 Drug: Rocephin 1 grams {Note: dialysis catheter to right upper chest by DAMEON Acevedo.} cc3 Route: IV; Rate: calculated rate; Site: Other; 20:30 Follow up: Response: No adverse reaction cc3 20:30 Follow up: IV Status: Completed infusion cc3 20:35 Drug: Zithromax 500 mg {Note: dialysis catheter to right upper chest given by DAMEON Miller cc3 Page.} Route: IVPB; Infused Over: 1 hrs; Site: Other; 20:35 Follow up: IV Status: Infusion continued upon transfer cc3 Disposition: 10/04/18 17:58 Transfer ordered to [facility]. Diagnosis is Esophageal obstruction - Food bolus. - Reason for transfer: Higher level of care. - Accepting physician is DR Norris. - Condition is Stable. - Problem is new. - Symptoms are unchanged. Addendum: 10/06/2018 07:48 Co-signature as Attending Physician, Paul Grier MD I agree with the assessment and c crawford plan of care. Signatures: Dispatcher [employer] EDArlette Schafer RN RN aj1 Paul Grier MD MD cha Ballard, Brenda, RN RN bb Shannen Ivey RN RN aa5 Paul Acevedo PA PA cp Cordel, Charlene cc3 Corrections: (The following items were deleted from the chart) 10/04 17:33 17:33 Potassium Chloride 20 mEq IV at calculated rate once; administer over 1-2 hours cp ordered. cp 21:34 17:58 10/04/2018 17:58 Transfer ordered to [facility]. Diagnosis is cc3 Esophageal obstruction - Food bolus. Reason for transfer: Higher level of care. Accepting physician is DR Norris. Condition is Stable. Problem is new. Symptoms are unchanged. cp
--- NOTE | 2018-10-04 17:59 | ER ---
Nurse's Notes [facility] Name: Stefany Sauer Age: 83 yrs Sex: Female : 1935 Arrival Date: 10/04/2018 Time: 13:39 Bed 14 Private MD: Diagnosis: Esophageal obstruction-Food bolus Presentation: 10/04 13:42 Presenting complaint: Child states: When she was eating lunch yesterday she felt like aj1 something got stuck in her throat, since then she hasn't been able to keep anything down, not even water. Also reports patient has had frequent swelling of the right arm since they placed dialysis port in her chest. Patient reports RLQ and LLQ abdominal pain. Respirations even and unlabored. Patient denies SOB. Transition of care: patient was not received from another setting of care. Onset of symptoms was October 03, 2017. Risk Assessment: Do you want to hurt yourself or someone else? Patient reports no desire to harm self or others. Initial Sepsis Screen: Does the patient meet any 2 criteria? No. Patient's initial sepsis screen is negative. Does the patient have a suspected source of infection? No. Patient's initial sepsis screen is negative. Care prior to arrival: None. 13:42 Method Of Arrival: EMS: [facility] aj1 13:42 Acuity: SHEA 3 aj1 Triage Assessment: 13:47 General: Appears in no apparent distress. comfortable, Behavior is calm, cooperative, aj1 appropriate for age. Pain: Complains of pain in right lower quadrant and left lower quadrant. Historical: - Allergies: 13:47 Betapace; aj1 13:47 Demerol; aj1 13:47 Ferrous Gluconate; aj1 13:47 Sulfa (Sulfonamide Antibiotics); aj1 13:47 Trazodone; aj1 13:47 Zutripro; aj1 - Home Meds: 13:47 allopurinol 100 mg Oral tab 1 tab once daily [Active]; amlodipine 5 mg tab 1 tab once aj1 daily [Active]; calcium acetate 667 mg Oral cap 1 caps with meals [Active]; Dialyvite 800 with Zinc 15 0.8-15 mg Oral tab daily [Active]; levothyroxine 125 mcg tab 1 tab once daily [Active]; omeprazole 40 mg Oral cpDR 1 cap once daily [Active]; pravastatin 40 mg Oral tab 1 tab once daily [Active]; prednisone 10 mg Oral tab once daily [Active]; Poppy-Taisha 0.8 mg Oral tab [Active]; tadalafil Oral 1 tab once daily [Active]; Vitamin D3 5,000 unit Oral tab daily [Active]; - PMHx: 13:47 CHF; Cirrhosis; CVA; Dialysis; GI Bleed; Gout; Hyperlipidemia; Hypertension; aj1 Hypothyroidism; seasonal allergies; ESRD; - Immunization history:: Flu vaccine status is unknown. - Social history:: Smoking status: Patient/guardian denies using tobacco. - Ebola Screening: : Patient denies travel to an Ebola-affected area in the 21 days before illness onset. Screenin:48 Abuse screen: Denies threats or abuse. Denies injuries from another. Nutritional aj1 screening: No deficits noted. Tuberculosis screening: No symptoms or risk factors identified. 19:15 Fall Risk Ambulatory Aid- None/Bed Rest/Nurse Assist (0 pts). Gait- Impaired (20 pts.). cc3 Mental Status- Oriented to own ability (0 pts). Assessment: 13:48 General: Appears in no apparent distress. comfortable, Behavior is calm, cooperative, aj1 appropriate for age. Pain: Complains of pain in left lower quadrant and right lower quadrant Pain currently is 6 out of 10 on a pain scale. Neuro: Level of Consciousness is awake, alert, obeys commands. Cardiovascular: Heart tones S1 S2 present Patient's skin is warm and dry. Rhythm is sinus rhythm. Respiratory: Airway is patent Respiratory effort is even, unlabored, Respiratory pattern is regular, symmetrical, Breath sounds are clear bilaterally. Denies shortness of breath. GI: No signs and/or symptoms were reported involving the gastrointestinal system. : No signs and/or symptoms were reported regarding the genitourinary system. EENT: Parent/caregiver reports the patient having difficulty swallowing feeling like something is stuck in her throat. Derm: No signs and/or symptoms reported regarding the dermatologic system. Skin is pink, warm \T\ dry. normal. Musculoskeletal: No signs and/or symptoms reported regarding the musculoskeletal system. Circulation, motion, and sensation intact. 14:45 Reassessment: Patient appears in no apparent distress at this time. No changes from aj1 previously documented assessment. Patient and/or family updated on plan of care and expected duration. Pain level reassessed. Patient is alert, oriented x 3, equal unlabored respirations, skin warm/dry/pink. 15:55 Reassessment: Patient appears in no apparent distress at this time. No changes from aj1 previously documented assessment. Patient and/or family updated on plan of care and expected duration. Pain level reassessed. Patient is alert, oriented x 3, equal unlabored respirations, skin warm/dry/pink. 16:45 Reassessment: Patient and/or family updated on plan of care and expected duration. Pain aj1 level reassessed. General: Appears in no apparent distress. comfortable, Behavior is calm, cooperative, appropriate for age. Neuro: Level of Consciousness is awake, alert, obeys commands. Cardiovascular: Patient's skin is warm and dry. Rhythm is sinus rhythm. Respiratory: Airway is patent Respiratory effort is even, unlabored, Respiratory pattern is regular, symmetrical. GI: Abdomen is flat, non-distended. Derm: No signs and/or symptoms reported regarding the dermatologic system. Skin is pink, warm \T\ dry. normal. Musculoskeletal: No signs and/or symptoms reported regarding the musculoskeletal system. Circulation, motion, and sensation intact. 17:45 Reassessment: Patient appears in no apparent distress at this time. No changes from aj1 previously documented assessment. Patient and/or family updated on plan of care and expected duration. Pain level reassessed. Patient is alert, oriented x 3, equal unlabored respirations, skin warm/dry/pink. 18:45 Reassessment: Patient and/or family updated on plan of care and expected duration. Pain aj1 level reassessed. General: Appears in no apparent distress. comfortable, Behavior is calm, cooperative, appropriate for age. Neuro: Level of Consciousness is awake, alert, obeys commands. Cardiovascular: Patient's skin is warm and dry. Rhythm is sinus rhythm. Respiratory: Airway is patent Respiratory effort is even, unlabored, Respiratory pattern is regular, symmetrical. GI: Abdomen is flat, non-distended. Derm: Skin is pink, warm \T\ dry. normal. Musculoskeletal: Circulation, motion, and sensation intact. 19:39 Reassessment: Patient appears in no apparent distress at this time. No changes from aj1 previously documented assessment. Patient and/or family updated on plan of care and expected duration. Pain level reassessed. Patient is alert, oriented x 3, equal unlabored respirations, skin warm/dry/pink. 19:40 Reassessment: Patient appears in no apparent distress at this time. Patient and/or cc3 family updated on plan of care and expected duration. Pain level reassessed. Patient is alert, oriented x 3, equal unlabored respirations, skin warm/dry/pink. Received this female patient from morning shift RN Arlette as a case of esophageal obstruction - food bolus. No IV cannula in situ. Patient has a two-lumen hemodialysis catheter to her right upper chest with an ongoing infusion of Potassium Chloride 10 meq over an hour infusing well. Patient for transfer to [facility], report was given as endorsed. 20:18 Reassessment: Patient appears in no apparent distress at this time. Patient and/or cc3 family updated on plan of care and expected duration. Pain level reassessed. Patient is alert, oriented x 3, equal unlabored respirations, skin warm/dry/pink. 21:00 Reassessment: Patient appears in no apparent distress at this time. Patient and/or cc3 family updated on plan of care and expected duration. Pain level reassessed. Patient is alert, oriented x 3, equal unlabored respirations, skin warm/dry/pink. [facility] came to fetch the patient for transfer. 21:30 Reassessment: Patient left ER for transfer by EMS stretcher vitally stable with her cc3 family. Vital Signs: 13:47 BP 114 / 63; Pulse 79; Resp 14; Temp 98.5; Pulse Ox 100% on R/A; Pain 6/10; aj1 14:45 BP 114 / 68; Pulse 72; Resp 18; Pulse Ox 100% on R/A; aj1 15:45 BP 117 / 62; Pulse 72; Resp 18; Pulse Ox 99% on R/A; aj1 16:45 BP 118 / 60; Pulse 68; Resp 18; Pulse Ox 100% ; aj1 17:45 BP 99 / 44; Pulse 68; Resp 18; Pulse Ox 99% ; aj1 18:45 BP 109 / 65; Pulse 62; Resp 18; Pulse Ox 97% on R/A; aj1 19:37 BP 104 / 54; Pulse 68; Resp 18; Pulse Ox 100% on R/A; aj1 20:45 BP 103 / 73; Pulse 86; Resp 23 S; Temp 98.7(O); Pulse Ox 98% on R/A; cc3 21:00 BP 105 / 73; Pulse 88; Resp 20 S; Pulse Ox 98% on R/A; cc3 ED Course: 13:39 Patient arrived in ED. aa5 13:40 Paul Acevedo PA is PHCP. cp 13:40 Paul Grier MD is Attending Physician. cp 13:41 Arlette Goldsmith RN is Primary Nurse. aj1 13:43 Triage completed. aj1 13:47 Arm band placed on Patient placed in an exam room. aj1 13:48 Patient has correct armband on for positive identification. Bed in low position. Call aj1 light in reach. Side rails up X 1. Adult w/ patient. front desk administrator on. Pulse ox on. NIBP on. 13:48 No provider procedures requiring assistance completed. aj1 14:15 EKG done, by ED staff, reviewed by Paul XIAO. 5 15:14 Missed attempt(s): 22 gauge in left forearm. 24 gauge in left wrist. 5 15:54 Missed attempt(s): 20 gauge in left EJ by DAMEON Ferris. aj1 17:36 initiated a transfer with Adelita at the [facility] transfer center. eb 18:57 CT completed. Patient moved to CT via stretcher. Patient moved back from CT. bq 19:00 CT Chest Abdomen Pelvis W/O Contrast: no oral contrast In Process Unspecified. EDMS 19:39 Report given to OJNATHAN Lovell at [facility]. aj1 19:40 Report given to JONATHAN Portillo. aj1 21:00 Patient did not have IV access during this emergency room visit. cc3 Administered Medications: 17:33 CANCELLED (Physician Discretion): Potassium Chloride 20 mEq IV at calculated rate once; cp administer over 1-2 hours 18:20 Drug: Glucagon 1 mg {Note: given by DAMEON Lucas to dialysis catheter to chest .} aa5 Route: IVP; Site: Other; 19:28 Follow up: Response: No adverse reaction aj1 18:21 Drug: Potassium Chloride 10 mEq {Note: given by DAMEON Lucas to dialysis catheter to aa5 chest .} Route: IV; Rate: calculated rate; Site: Other; 19:30 Follow up: Response: No adverse reaction; IV Status: Completed infusion; IV Intake: cc3 100ml 18:38 Drug: fentaNYL (PF) 25 mcg Route: IM; Site: right deltoid; aj1 19:29 Follow up: Response: No adverse reaction aj1 19:30 Drug: NS 0.9% 1000 ml {Note: dialysis catheter to right upper chest.} Route: IV; Rate: cc3 35 ml/hr; Site: Other; 20:00 Follow up: IV Status: Infusion continued upon transfer cc3 20:10 Drug: Rocephin 1 grams {Note: dialysis catheter to right upper chest by DAMEON Acevedo.} cc3 Route: IV; Rate: calculated rate; Site: Other; 20:30 Follow up: Response: No adverse reaction cc3 20:30 Follow up: IV Status: Completed infusion cc3 20:35 Drug: Zithromax 500 mg {Note: dialysis catheter to right upper chest given by DAMEON Miller cc3 Page.} Route: IVPB; Infused Over: 1 hrs; Site: Other; 20:35 Follow up: IV Status: Infusion continued upon transfer cc3 Intake: 19:30 IV: 100ml; Total: 100ml. cc3 Outcome: 17:58 ER care complete, transfer ordered by MD. cp 21:00 Transferred by ground EMS to [facility], Transfer form completed. cc3 21:00 Condition: stable 21:00 Instructed on the need for transfer, Demonstrated understanding of instructions. 21:34 Patient left the ED. cc3 Signatures: Dispatcher [employer] EDMS Arlette Goldsmith RN RN aj1 [place] Skinner Audri, RN RN aa5 Page, Corey, PA PA cp Martinez, Maria mh5 Botello, Elizabeth eb Cordel, Charlene cc3 Corrections: (The following items were deleted from the chart) 17:09 17:08 Orthoglass splint: Posterior long leg splint applied on left leg. [place] [id number] 22:40 19:39 Reassessment: Patient appears in no apparent distress at this time. Patient cc3 and/or family updated on plan of care and expected duration. Pain level reassessed. Patient is alert, oriented x 3, equal unlabored respirations, skin warm/dry/pink. Received this female patient from morning shift JONATHAN Chong as a case of esophageal obstruction - food bolus. No IV cannula in situ. Patient has a two-lumen hemodialysis catheter to her right upper chest with an ongoing infusion of Potassium Chloride 10 meq over an hour infusing well. Patient for transfer to [facility], report was given as endorsed. cc3
[2018-10-04] MEDS ORDERED: POTASSIUM CL 10 MEQ in NA CHLORIDE 0.9% 100 ML IV SCH (18:00)
[2018-10-04 18:01] LABS: Absolute Lymphocytes (CBC) 0.8 K/uL (0.7-4.9); Absolute Monocytes 0.5 K/uL (0.1-1.3); Basophils % 0.9 % (0-1.3); Eosinophils % 0.5 % (0-4.4); Hematocrit 39.3 % (36.0-45.0); Lymphocytes % 8.5 % (15.3-44.8); MPV 9.4 fL (7.6-11.3); Monocytes % 5.7 % (3.3-12.3); RBC Red Blood Cell Count 3.91 M/uL (3.86-4.86)
[2018-10-04 18:31] LABS: Anisocytosis 1+; Basophilic Stippling 1+; Blood Morphology Comment NOTED (NOT SEEN); Burr Cells 2+; Platelet Estimate ADEQ; Polychromasia SLIGHT; Urine White Blood Cell Casts OK
[2018-10-04] MEDS ORDERED: FENTANYL CITR 100 MCG/2 ML ONE (18:44)
[2018-10-04] MEDS ORDERED: NA CHLORIDE 0.9% 1,000 ML ONE (19:36)
--- NOTE | 2018-10-04 19:47 | RAD REPORT ---
EXAM DESCRIPTION: CT - Chest Abd Pelvis Wo Con - 10/04/2018 6:59 pm CLINICAL HISTORY: Chest and abdominal pain COMPARISON: Spine x-rays August 2018 TECHNIQUE: Computed axial tomography of the chest, abdomen and pelvis was obtained. Oral contrast wa s given. IV contrast was not requested. All CT scans are performed using dose optimization technique as appropriate and may include automated exposure control or mA/KV adjustment according to patient size. FINDINGS: The evaluation of mediastinum, tim, vessels and solid organs is limited secondary to the lack of IV contrast administration No mediastinal or hilar lymphadenopathy is seen. Minimal bilateral pleural effusions. A pericardial effusion is not seen. The heart is enlarged Mild right lower lobe consolidation. Mild left lower lobe atelectasis A cirrhotic liver is present. The kidneys are small. The spleen and pancreas appear grossly normal. An adrenal mass is not seen. There is no evidence of diverticulitis. A small amount of ascites is present. Compression deformities involving thoracic and lumbar vertebra are without obvious change. Callus for mation is present about a fracture of the left inferior pubic ramus. Mild sacral insufficiency fractu re noted. Sclerotic densities within the femoral heads. A couple sclerotic densities are present within ribs an d spine. IMPRESSION: Mild right lower lobe pneumonia. Cirrhosis Small amount of ascites Scattered sclerotic densities within ribs and spine may represent blastic metastases Sclerotic densities within the femoral head may represent avascular necrosis or metastases
[2018-10-04] MEDS ORDERED: CEFTRIAXONE 1000 MG/VIAL ONE (20:20)
[2018-10-04] MEDS ORDERED: AZITHROMYCIN 500 MG/250 ML BAG ONE (20:20)
[2018-10-04] MEDS ORDERED: NA CHLORIDE 0.9% 50 ML IV ONE (20:20)
[2018-10-04 21:53] VITALS: BP 103/73; TEMP 98.7; O2SAT 98
--- NOTE | 2018-10-05 11:24 | EKG ---
Test Date: 2018-10-04 Test Time: 14:02:40 [employer] Department Manager: STAN MEASUREMENT RESULTS: Intervals: Rate: 74 NH: 130 QRSD: 88 QT: 412 QTc: 457 [place]: P: 44 NH: 130 QRS: -39 T: 64 INTERPRETIVE STATEMENTS: Normal sinus rhythm Possible Left atrial enlargement Left axis deviation Possible Anterior infarct, age undetermined Abnormal ECG Compared to ECG 09/04/2018 13:16:08 Myocardial infarct finding now present Atrial premature complex(es) no longer present ST (T wave) deviation no longer present Electronically Signed On 10-05-18 11:23:41 APPLIANCE SALES ASSOCIATE by Myke Forde
== END 2018-10-04 21:34 | disposition short-term general hospital (02) ==
LOC: ER 13:21
DX: K22.2 Esophageal obstruction (principal); I50.9 Heart failure, unspecified; E78.5 Hyperlipidemia, unspecified; I10 Essential (primary) hypertension; E03.9 Hypothyroidism, unspecified; N18.6 End stage renal disease; Z99.2 Dependence on renal dialysis; Z88.8 Allergy status to other drugs, medicaments and biological substances; Z88.2 Allergy status to sulfonamides; Z88.6 Allergy status to analgesic agent
CPT/HCPCS: 36415; 71045; 71250; 74176; 80048; 80076; 83735; 83880; 84484; 85025; 85610; 93005; J0456; J1610; J1644; J3010; J7030